=== PATIENT | female | born 1985 | race Caucasian/White ===

== ENCOUNTER → 2024-07-03 | Outpatient (CLI) | payer OTHER, SELFPAY ==
--- NOTE | 2024-07-03 12:49 | ECHOD_ITS ---
Reason For Study Reason For Study: POTS Procedure This was a 2D Doppler, Color Flow transthoracic echocardiogram. Exam performed in department. Left Ventricle Normal LV size. The estimated ejection fraction is 55 %. No evidence for diastolic dysfunction. No regional wall motion abnormalities noted. Right Ventricle Normal RV size. Normal systolic function. Atria The left and right atria are normal. No doppler evidence for ASD. Mitral Valve There is no mitral valve stenosis. Trivial mitral valve insufficiency. Tricuspid Valve There is no tricuspid stenosis. Trivial tricuspid valve insufficiency. Unable to estimate RV systolic pressure due to insufficient tricuspid regurgitant envelope. Aortic Valve The aortic valve is not well visualized. There is no aortic stenosis. No aortic valve insufficiency. Pulmonic Valve There is no pulmonic valvular stenosis. No pulmonic valve insufficiency. Great Vessels Normal sized aortic root. Pericardium/Pleural No pericardial effusion. MMode/2D Measurements & Calculations LVIDd: 4.0 cm IVSd: 0.78 cm Ao root diam: 2.5 cm LVIDs: 3.4 cm LVPWd: 0.91 cm RVDd: 2.6 cm FS: 13.0 % LAV(MOD-bp): 26.5 ml LVAd ap4: 25.0 cm2 SV(MOD-sp4): 42.0 ml LAV(MOD-bp) Indexed: 17.7 ml/m2 LVLd ap4: 7.2 cm SI(MOD-sp4): 28.2 ml/m2 LAV(MOD-sp2): 26.1 ml EDV(MOD-sp4): 72.3 ml LAV(MOD-sp4): 23.0 ml EDV(sp4-el): 73.4 ml LVAs ap4: 14.7 cm2 LVLs ap4: 6.3 cm ESV(MOD-sp4): 30.3 ml ESV(sp4-el): 29.3 ml EF(MOD-sp4): 58.1 % EF(sp4-el): 60.0 % SV(sp4-el): 44.1 ml LA A4 area: 12.3 cm2 LA dimension(2D): 2.2 cm RA A4 area: 7.7 cm2 Time Measurements MV dec time: 0.20 sec Doppler Measurements & Calculations MV E max west: 112.4 cm/sec Lat Peak E' West: 18.4 cm/sec Med Peak E' West: 9.9 cm/sec MV A max west: 43.7 cm/sec E/E' lat: 6.1 E/E' med: 11.4 MV E/A: 2.6 MV V2 max: 123.2 cm/sec Ao V2 max: 125.2 cm/sec MV max P.1 mmHg MV dec slope: 574.1 cm/sec2 Ao max P.3 mmHg MV V2 mean: 62.3 cm/sec Ao V2 mean: 82.3 cm/sec MV mean P.9 mmHg Ao mean P.2 mmHg MV V2 VTI: 37.5 cm Ao V2 VTI: 25.7 cm AV (velocity ratio): 1.0 LV V1 max: 118.4 cm/sec PA V2 max: 82.1 cm/sec LV V1 max P.6 mmHg PA V2 mean: 62.0 cm/sec LV V1 mean P.2 mmHg LV V1 mean: 86.1 cm/sec LV V1 VTI: 26.2 cm ECHO/Echo Complete Interpretation Summary The estimated ejection fraction is 55 %. No evidence for diastolic dysfunction. Trivial mitral valve insufficiency. Ordering Physician: Zofia Miranda Referring Physician: Zofia Miranda Performed By: Heide Sagastume RCS
== END | disposition home or self-care (01) ==
PROVIDERS: PCP Physician Assistant; Referring Provider Physician Assistant; Visit Provider Physician Assistant
DX: G90.A Postural orthostatic tachycardia syndrome [POTS] (principal)
CPT/HCPCS: 93306

== ENCOUNTER → 2025-04-13 | Outpatient (CLI) | payer SELFPAY ==
[2025-04-09 11:13] LABS: Hematocrit 44.5 % (37-47); Hemoglobin 14.8 g/dL (12.0-15.0); Mean Corp Hgb Conc 33.3 g/dL (32-36); Mean Corpuscular Volume 84.0 fL (81-99); Mean Platelet Vol. 9.2 fl (6.2-12.0); Platelet Count 253 K/mm3 (150-450); RBC Distribution Width CV 12.4 % (11.6-14.6); RBC Distribution Width SD 38.1 fl (35.1-43.9); Red Blood Count 5.30 M/mm3 (4.2-5.4); White Blood Count 4.2 K/mm3 (4.4-11.0)
[2025-04-09 11:25] LABS: Internal QC Validated? YES +Cl - CLEAR BKGD; Pregnancy, Serum, hCG Quali. NEGATIVE Negative
[2025-04-09 12:08] LABS: Anion Gap 12 (5-15); BUN 13 mg/dL (4-19); BUN/Creat Ratio 19.9 RATIO (10-20); Calcium,Total 9.3 mg/dL (7.6-11.0); Carbon Dioxide 25.1 mmol/L (21.0-32.0); Chloride 104 mmol/L (98-108); Glucose 97 mg/dL (70-99); Potassium 4.0 mmol/L (3.3-5.1)
--- OUTSIDE RECORDS SUMMARY | 2025-04-13 11:27 | XMS RPT_ITS | CCD ---
Author Organization [facility] Care Team Providers Care Android Programmer Name Role Phone ZOFIA JAMES Primary Care Physician [phone] Vlad Erazo Attending Unavailable DO Vlad Erazo Attending Unavailable Zofia Larkin Primary Care Provider [phone] Zofia Larkin Attending Provider Zofia Larkin Referring Provider [phone] Helen SOLORIO, Dr. Flores Attending Provider Zofia James Primary Care Unavailable Zofia James Referring Unavailable Boaz Rizvi Attending Unavailable Zofia James Primary Care Unavailable Mark Cervantes Attending Unavailabl e Zofia James Primary Care Unavailable Zofia James Attending Unavailable Zofia James Referring Unavailable Zofia Larkin Primary Care Physician Zofia Larkin Referring Provider Dmitri SOLORIO, Dr. Sandra Attending Physician [phone] Allergies Allergy Classification Reported Allergen(s) Allergy Type Date of Onset Reaction(s) Facility (3 sources) Amoxicillin; Translations: [amoxicillin] Drug Allergy 5 [facility] (2 sources) Amoxicillin / Clavulanate; Translations: [amoxicillin-clav ulanate] Drug Allergy [facility] (2 sources) Azithromycin; Translations: [azithromycin] Drug Allergy [facility] (3 sources) Cephalexin; Translations: [cephalexin] Drug Allergy 5 [facility] (3 sources) Ciprofloxacin; Translations: [ciprofloxacin] Drug Allergy 5 [facility] (2 sources) Penicillin; Translations: [penicillin] Drug Allergy [facility] (2 sources) Shellfish; Translations: [shellfish] Drug allergy Anaphylactic reaction [facility] (2 sources) Sulfamethoxazole; Translations: [sulfamethoxazole ] Drug Allergy [facility] (1 source) Amoxicillin Drug Allergy 5 [facility] (1 source) Cephalexin Drug Allergy 5 [facility] (1 source) Ciprofloxacin Drug Allergy 5 [facility] (1 source) Clavulanate Drug Allergy 5 [facility] (1 source) Erythromycin Drug Allergy 5 [facility] (1 source) Penicillins Drug allergy (disorder) 5 [facility] (2 sources) Shellfish Drug allergy (disorder) 5 Anaphylaxis [facility] (1 source) Sulfonamides (Antibiotic) Drug allergy (disorder) 5 [facility] (1 source) Clavulanate Drug Allergy 5 [facility] (1 source) Erythromycin Drug Allergy 5 [facility] (1 source) Penicillins Allergy to substance 5 [facility] (1 source) Sulfonamides (Antibiotic) Allergy to substance 5 [facility] Medications Current Medications Medication Drug Class(es) Dates Sig (Normalized) Sig (Original) Calcium Lactate 100 mg calcium tablet (1 source) Start: 02-04-2025 take 1 tablet by mouth once daily Calcium Lactate 100 mg calcium tablet Active 100 mg PO daily February 04, 2025 12:00am Complies with drug therapy [id number] 0.3 ml EPINEPHrine 1 mg/ml auto-injector (1 source) alpha-Adrenergic Agonist, beta-Adrenergic Agonist, Catecholamine Start: 02-04-2025 Epinephrine 0.3 mg/0.3 mL auto-injector Active 0.3 mg IM every 5 to 15 minutes as needed February 04, 2025 12:00am do not exceed 3 doses per episode Complies with drug therapy ergocalciferol 0.05 mg oral capsule (1 source) Provitamin D2 Compound Start: 02-04-2025 Ergocalciferol (Vitamin D2) 50 mcg (2,000 unit) capsule Active 50 ug PO daily February 04, 2025 12:00am Complies with drug therapy Lactobacillus Combination No.9 (Adult 50 Plus Probiotic) 4 billion cell capsule (1 source) Start: 02-17-2025 take 4 capsules by mouth once daily Lactobacillus Combination No.9 (Adult 50 Plus Probiotic) 4 billion cell capsule Active PO daily February 17, 2025 12:00am Complies with drug therapy magnesium oxide 400 mg oral tablet (1 source) Start: 02-04-2025 take 1 tablet by mouth once daily Magnesium Oxide 400 mg magnesium tablet Active 400 mg PO daily February 04, 2025 12:00am Complies with drug therapy mecobalamin 1 mg oral lozenge (1 source) Start: 02-04-2025 take 1000 ug by mouth once daily Mecobalamin (Vitamin B12) 1,000 mcg lozenge Active 1000 ug PO daily February 04, 2025 12:00am allow to dissolve in mouth OR may chew lightly before swallowing Complies with drug therapy Milk Nsadnjn-Qlm-Lzhqps-T urmer (Liver Complex) 250-250 mg tablet (1 source) Start: 02-04-2025 Milk Unvrcbw-Hvw-Mvnzys- Turmer (Liver Complex) 250-250 mg tablet Active 1 {tbl} PO DAILY February 04, 2025 12:00am Complies with drug therapy naproxen 500 mg oral tablet (1 source) Nonsteroidal Anti-inflammatory Drug Start: 06-07-2024 take 1 tablet by mouth twice daily as needed for pain Naprosyn 500 mg Tab 500 mg = 1 tab(s), Oral, BID, PRN for pain, # 20 tab(s), Refills(s) 0 Start Date: 06/07/24 Status: Ordered propranolol hydrochloride 20 mg oral tablet (1 source) beta-Adrenergic [place] Start: 02-04-2025 take 1 tablet by mouth twice daily Propranolol 20 mg tablet Active 20 mg PO TWICE A DAY February 04, 2025 12:00am Complies with drug therapy vitamin k 0.1 mg oral tablet (1 source) Start: 02-04-2025 Phytonadione (Vitamin K1) 100 mcg tablet Active 100 ug PO daily February 04, 2025 12:00am Complies with drug therapy Zofran ODT 4 mg Tab-Dis (1 source) Start: 06-07-2024 take 1 tablet by mouth every six hours Zofran ODT 4 mg Tab-Dis 4 mg = 1 tab(s), Oral, q6hr, # 12 tab(s), Refills(s) 0 Start Date: 06/07/24 Status: Ordered Completed/Discontinued Medications Medication Drug Class(es) Dates Sig (Normalized) Sig (Original) amitriptyline hydrochloride 25 mg oral tablet (1 source) Tricyclic Antidepressant Start: 02-04-2025 End: 02-17-2025 take 1 tablet by mouth once daily Amitriptyline 25 mg tablet Discontinued 25 mg PO daily February 04, 2025 12:00am February 17, 2025 11:09am Problems Active Problems Problem Classification Problem Date Documented Da te Episodic/Chronic Asthma (1 source) Asthma; Translations: [Unspecified asthma, uncomplicated] 02-04-2025 Chronic Cardiac dysrhythmias (2 sources) Postural orthostatic tachycardia syndrome ; Translations: [Postural orthostatic tachycardia syndrome] 02-04-2025 Chronic Cardiac dysrhythmias (4 sources) Palpitations; Translations: [Tachycardia, unspecified] Onset: 02-17-2025 02-04-2025 Episodic Malaise and fatigue (2 sources) Other fatigue; Translations: [Fatigue] Onset: 02-17-2025 02-04-2025 Episodic Nonspecific chest pain (1 source) Chest pain; Translations: [Chest pain, unspecified] Onset: 06-07-2024 Episodic Other gastrointestinal disorders (1 source) Irritable bowel syndrome; Translations: [Irritable bowel syndrome without diarrhea] 02-04-2025 Chronic Other infections; including parasitic (1 source) Lyme disease; Translations: [Lyme disease, unspecified] 02-04-2025 Episodic Syncope (3 sources) Syncope and collapse; Translations: [Syncope] Onset: 02-17-2025 02-04-2025 Episodic Viral infection (1 source) Chris-Barragan virus disease; Translations: [Infectious mononucleosis, unspecified without complication] 02-04-2025 Episodic Past or Other Problems Problem Classification Problem Date Documented Da te Episodic/Chronic Other circulatory disease (1 source) Postural orthostatic tachycardia syndrome ; Translations: [Postural orthostatic tachycardia syndrome [POTS]] Onset: 07-16-2024 Episodic Results Test Name Value Interpretation Reference Range Facility Cardiology Visit Reporton Cardiology Visit Report [facility] [address] [place] [address] OFFICE VISIT Date of Service: 02/17/25 MR#: [id number] Acct: [id number] Name: ELLA VEGA Rep #: [id number] : 1985 Provider: Dr. Boaz Rizvi MD Age/Sex: 39/F [place] [facility] [place]: Signed HPI HPI History of Present Illness Details: The patient is a 39-year-old female with a history of vasovagal syncope, presenting for evaluation of ongoing symptoms. The patient was diagnosed with vasovagal syncope in her early 20s following a positive tilt table test. Recently, her primary care provider suggested a diagnosis of POTS and initiated propranolol, which has helped reduce episodes of tachycardia. She is seeking further evaluation to determine the accuracy of her diagnosis and the appropriateness of her current treatment regimen. She did have an echocardiogram in June which demonstrated preserved left ventricular systolic function with no wall motion abnormalities noted and no mitral valve prolapse. She reports persistent symptoms of palpitations, dizziness, and severe fatigue. Dizziness is particularly pronounced with postural changes, such as standing up after gardening, often accompanied by visual disturbances like seeing black spots and a sensation of things swimming. She has not experienced any recent syncopal episodes, as she can usually prevent fainting by quickly sitting down or holding onto something. A few months ago, she visited the ED due to significant chest pain but was discharged without a clear diagnosis. She continues to experience occasional chest discomfort. Her physical exam is unremarkable and her electrocardiogram demonstrates sinus rhythm with a rate of 62 bpm. She carries a water bottle with added salt to maintain hydration and increase sodium intake. During episodes of severe symptoms, she consumes salty snacks and caffeinated beverages, which she finds helpful. She has a history of IBS and has previously tried elimination diets. Recently, she has been reducing gluten intake and increasing protein consumption, which she believes may slightly alleviate her symptoms. She is currently not employed outside the home. She is taking propranolol 20 mg BID and various supplements, including milk thistle. Intake Vital Signs 02/17/25 11:13 Height 5 ft 1 in Weight: 113 lb BMI 21.3 BP 100/63 Blood Pressure Location Lt brachial Position Sitting Respiration 16 Pulse 68 Pulse Source Monitor Intake Visit Reasons: POTS (BIRD) Manager Reading Required: No Accompanied by: Significant Other Is patient in pain?: No Allergies amoxicillin Allergy (Severe, Verified 02/17/25 11:08) Hives cephalexin (From Keflex) Allergy (Severe, Verified 02/17/25 11:08) Hives ciprofloxacin (From Cipro) Allergy (Severe, Verified 02/17/25 11:08) Hives clavulanic acid (From Augmentin) Allergy (Severe, Verified 02/17/25 11:08) Hives erythromycin base Allergy (Severe, Verified 02/17/25 11:08) Hives Penicillins Allergy (Severe, Verified 02/17/25 11:08) Hives shellfish derived Allergy (Severe, Verified 02/17/25 11:08) Anaphylaxis Sulfa (Sulfonamide Antibiotics) Allergy (Severe, Verified 02/17/25 11:08) Hives Medications ???Medication ???Instructions ???Recorded ???Confirmed ???Type calcium lactate 100 mg PO QDAY 02/04/25 02/17/25 H istory epinephrine 0.3 mg/0.3 mL 0.3 mg IM Q5-15M PRN 02/04/2502/03 History injection, auto-injector ergocalciferol (vitamin D2) 50 mcg 50 mcg PO QDAY 02/04/25 02/17/25 History (2,000 unit) capsule magnesium oxide 400 mg PO QDAY 02/04/25 02/17/25 H istory mecobalamin (vitamin B12) 1,000 1,000 mcg PO QDAY 02/04/25 5 History mcg lozenges milk thistle seed 1 tab PO DAILY 02/04/25 02/17/25 H istory bv-dooscivwtk-oycmyxq on-turmeri 250 mg-250 mg tablet (Liver Complex) phytonadione (vitamin K1) 100 mcg 100 mcg PO QDAY 02/04/25 02/17/25 History tablet propranolol 20 mg tablet 20 mg PO BID 02/04/25 02/17/25 His tory lactobacillus combination no.9 4 PO QDAY 02/17/25 02/17/25 History billion cell capsule (Adult 50 Plus Probiotic) Ejection fraction %: 55 PFSH Medical History Asthma Hx of ectopic Fatigue Tachycardia Palpitations Syncope Chris Barragan infection IBS (irritable bowel syndrome) Lyme disease POTS (postural orthostatic tachycardia syndrome) Surgical History H/O dilation and curettage Family History Father COPD (chronic obstructive pulmonary disease) Alcohol abuse Drug abuse Social History Smo (more content not included)... Normal [facility] Echocardiogram study reportO rdered By: Mark Cervantes on 07-04-2024 Study report [facility] [address] [place] [address]. [place] [address] Echo Complete 07/03/24 1255 MR#: [id number] Acct: [id number] Name: ELLA VEGA Rep #:[id number] : 1985 39 From: Mark foreman MD Attending Dr: SAMIR Blanton Stat us: REG CLI Ordering Dr: Zofia James Date: Location: [facility] Sex: F C Admitted: Reason For Study Reason For Study: POTS Procedure This was a 2D Doppler, Color Flow transthoracic echocardiogram. Exam performed in department. Left Ventricle Normal LV size. The estimated ejection fraction is 55 %. No evidence for diastolic dysfunction. No regional wall motion abnormalities noted. Right Ventricle Normal RV size. Normal systolic function. Atria The left and right atria are normal. No doppler evidence for ASD. Mitral Valve There is no mitral valve stenosis. Trivial mitral valve insufficiency. Tricuspid Valve There is no tricuspid stenosis. Trivial tricuspid valve insufficiency. Unable toestimate RV systolic pressure due to insufficient tricuspid regurgitant envelope. Aortic Valve The aortic valve is not well visualized. There is no aortic stenosis. No aortic valve insufficiency. Pulmonic Valve There is no pulmonic valvular stenosis. No pulmonic valve insufficiency. Great Vessels Normal sized aortic root. Pericardium/Pleural No pericardial effusion. MMode/2D Measurements & Calculations LVIDd: 4.0 cm IVSd: 0.78 cm Ao root diam: 2.5 cm LVIDs: 3.4 cm LVPWd: 0.91 cm RVDd: 2.6 cm FS: 13.0 % LAV(MOD-bp): 26.5 ml LVAd ap4: 25.0 cm2 SV(MOD-sp4): 42.0 ml LAV(MOD-bp) Indexed: 17.7 ml/m2 LVLd ap4: 7.2 cm SI(MOD-sp4): 28.2 ml/m2 LAV(MOD-sp2): 26.1 ml EDV(MOD-sp4): 72.3 ml LAV(MOD-sp4): 23.0 ml EDV(sp4-el): 73.4 ml LVAs ap4: 14.7 cm2 LVLs ap4: 6.3 cm ESV(MOD-sp4): 30.3 ml ESV(sp4-el): 29.3 ml EF(MOD-sp4): 58.1 % EF(sp4-el): 60.0 % SV(sp4-el): 44.1 ml LA A4 area: 12.3 cm2 LA dimension(2D): 2.2 cm RA A4 area: 7.7 cm2 Time Measurements MV dec time: 0.20 sec Doppler Measurements & Calculations MV E max miriam: 112.4 cm/sec Lat Peak E' Miriam: 18.4 cm/sec Med Peak E' Miriam: 9.9 cm/sec MV A max miriam: 43.7 cm/sec E/E' lat: 6.1 E/E' med: 11.4 MV E/A: 2.6 MV V2 max: 123.2 cm/sec Ao V2 max: 125.2 cm/sec MV max P.1 mmHg MV dec slope: 574.1 cm/sec2 Ao max P.3 mmHg MV V2 mean: 62.3 cm/sec Ao V2 mean: 82.3 cm/sec MV mean P.9 mmHg Ao mean P.2 mmHg MV V2 VTI: 37.5 cm Ao V2 VTI: 25.7 cm AV (velocity ratio): 1.0 LV V1 max: 118.4 cm/sec PA V2 max: 82.1 cm/sec LV V1 max P.6 mmHg PA V2 mean: 62.0 cm/sec LV V1 mean P.2 mmHg LV V1 mean: 86.1 cm/sec LV V1 VTI: 26.2 cm ECHO/Echo Complete Interpretation Summary The estimated ejection fraction is 55 %. No evidence for diastolic dysfunction. Trivial mitral valve insufficiency. Ordering Physician: Zofia James Referring Physician: Zofia James Performed By: Heide Sagastume RCS 07/04/24 1024 Date _ Mark Cervantes MD CC: SAMIR Blanton ~ Date Dictated: 07/03/24 1255 Date Transcribed: 07/04/24 1024 Outreach Rep: Signed [facility] Work Phone: Echo Completeon 07-03-2024 Echo Complete [facility] [address] [address] Echo Complete 07/03/24 1255 MR#: [id number] Acct: [id number] Name: ELLA VEGA Rep #: [id number] : 1985 39 From: Mark Cervantes MD Attending Dr: SAMIR Blanton Status: REG CLI Ordering Dr: Zofia James Date: 07/03/24 Location: [facility] Sex: F C Admitted: Reason For Study Reason For Study: POTS Procedure This was a 2D Doppler, Color Flow transthoracic echocardiogram. Exam performed in department. Left Ventricle Normal LV size. The estimated ejection fraction is 55 %. No evidence for diastolic dysfunction. No regional wall motion abnormalities noted. Right Ventricle Normal RV size. Normal systolic function. Atria The left and right atria are normal. No doppler evidence for ASD. Mitral Valve There is no mitral valve stenosis. Trivial mitral valve insufficiency. Tricuspid Valve There is no tricuspid stenosis. Trivial tricuspid valve insufficiency. Unable to estimate RV systolic pressure due to insufficient tricuspid regurgitant envelope. Aortic Valve The aortic valve is not well visualized. There is no aortic stenosis. No aortic valve insufficiency. Pulmonic Valve There is no pulmonic valvular stenosis. No pulmonic valve insufficiency. Great Vessels Normal sized aortic root. Pericardium/Pleural No pericardial effusion. MMode/2D Measurements Calculations LVIDd: 4.0 cm IVSd: 0.78 cm Ao root diam: 2.5 cm LVIDs: 3.4 cm LVPWd: 0.91 cm RVDd: 2.6 cm FS: 13.0 % LAV(MOD-bp): 26.5 ml LVAd ap4: 25.0 cm2 SV(MOD-sp4): 42.0 ml LAV(MOD-bp) Indexed: 17.7 ml/m2 LVLd ap4: 7.2 cm SI(MOD-sp4): 28.2 ml/m2 LAV(MOD-sp2): 26.1 ml EDV(MOD-sp4): 72.3 ml LAV(MOD-sp4): 23.0 ml EDV(sp4-el): 73.4 ml LVAs ap4: 14.7 cm2 LVLs ap4: 6.3 cm ESV(MOD-sp4): 30.3 ml ESV(sp4-el): 29.3 ml EF(MOD-sp4): 58.1 % EF(sp4-el): 60.0 % SV(sp4-el): 44.1 ml LA A4 area: 12.3 cm2 LA dimension(2D): 2.2 cm RA A4 area: 7.7 cm2 Time Measurements MV dec time: 0.20 sec Doppler Measurements Calculations MV E max miriam: 112.4 cm/sec Lat Peak E' Miriam: 18.4 cm/sec Med Peak E' Miriam: 9.9 cm/sec MV A max miriam: 43.7 cm/sec E/E' lat: 6.1 E/E' med: 11.4 MV E/A: 2.6 MV V2 max: 123.2 cm/sec Ao V2 max: 125.2 cm/sec MV max P.1 mmHg MV dec slope: 574.1 cm/sec2 Ao max P.3 mmHg MV V2 mean: 62.3 cm/sec Ao V2 mean: 82.3 cm/sec MV mean P.9 mmHg Ao mean P.2 mmHg MV V2 VTI: 37.5 cm Ao V2 VTI: 25.7 cm AV (velocity ratio): 1.0 LV V1 max: 118.4 cm/sec PA V2 max: 82.1 cm/sec LV V1 max P.6 mmHg PA V2 mean: 62.0 cm/sec LV V1 mean P.2 mmHg LV V1 mean: 86.1 cm/sec LV V1 VTI: 26.2 cm ECHO/Echo Complete Interpretation Summary The estimated ejection fraction is 55 %. No evidence for diastolic dysfunction. Trivial mitral valve insufficiency. Ordering Physician: Zofia James Referring Physician: Zofia James Performed By: Heide Sagastume RCS 07/04/24 1024 Date Mark Cervantes MD CC: SAMIR Blanton Date Dictated: 07/03/24 1255 Date Transcribed: 07/04/24 1024 Outreach Rep: Signed [facility] ED Clinical Summaryon 2024 ED Clinical Summary ED Clinical Summary [place] [address] ED Clinical Summary Person Information Name: ELLA VEGA[place] Age: 39 Years : 1985 Sex: Female Language: Luxembourgish PCP: ZOFIA JAMES PA-C Marital Status: Visit Id: Visit Reason: Nausea; Back pain; Chest pain; CP Speciality: Acuity: 2 Enc Type: Emergency Med Service: Emergency Arrival: 06/06/2024 22:12:27 Discharge: 06/07/2024 01:00:12 LOS: 000 02:48 Checkin: 06/06/2024 22:12:27 Checkout: 06/07/2024 01:00:12 Dispo Type: Home (Routine DC) EVENTS: Event Name Event Status Request Date/Time Start Date/Time Complete Date/Time Arrive Complete 06/06/2024 22:12:27 06/06/2024 22:12:27 06/06/2024 22:12:27 Document Home Meds Request 06/06/2024 22:12:27 Triage Complete 06/06/2024 22:12:27 06/06/2024 22:21:30 06/06/2024 22:21:30 Bed Assign Complete 06/06/2024 22:12:27 06/06/2024 22:12:27 06/06/2024 22:12:27 Dr Exam Complete 06/06/2024 22:12:27 06/06/2024 22:18:15 06/06/2024 22:18:15 RN Exam Complete 06/06/2024 22:12:27 06/06/2024 22:23:25 06/06/2024 22:23:25 EKG Complete 06/06/2024 22:14:59 06/06/2024 22:16:18 Registration Complete 06/06/2024 22:18:15 06/06/2024 22:40:01 06/06/2024 22:40:01 Meds Admin Complete 06/06/2024 22:26:31 06/06/2024 22:32:58 Pending Labs Complete 06/06/2024 22:26:31 06/07/2024 00:34:26 Lab Complete 06/06/2024 22:26:31 06/06/2024 23:14:19 Patient Care Request 06/06/2024 22:26:31 RT Request 06/06/2024 22:26:31 X-Ray Complete 06/06/2024 22:26:31 06/06/2024 23:20:55 06/06/2024 23:29:18 Reg Complete Request 06/06/2024 22:40:01 Reg Bed Request Complete 06/06/2024 22:40:01 06/06/2024 22:40:01 06/06/2024 22:40:01 Pending Labs Complete 06/06/2024 22:52:24 06/06/2024 22:52:24 06/06/2024 23:14:19 Lab Complete 06/06/2024 22:52:24 06/06/2024 22:52:24 06/06/2024 23:14:19 Meds Admin Complete 06/06/2024 23:01:54 06/06/2024 23:11:45 Wet Read Request 06/06/2024 23:29:18 Discharge Complete 06/07/2024 00:45:26 06/07/2024 01:00:19 06/07/2024 01:00:19 Transfer Complete 06/07/2024 01:00:19 06/07/2024 01:00:19 06/07/2024 01:00:19 ADDRESS: [address] [place] [address] [phone] PHYS DOC NOTES: MEDICAL INFORMATION: Prescriptions Given: New Medications Printed Prescriptions naproxen (Naprosyn 500 mg Tab) 1 Tablets By Mouth 2 times a day as needed for pain. Refills: 0. ondansetron (Zofran ODT 4 mg Tab-Dis) 1 Tablets By Mouth every 6 hours. Refills: 0. PATIENT EDUCATION INFORMATION: Instructions: Nonspecific Chest Pain, Adult, Kevv-bq-Wagx Follow up: With: Address: When: ZOFIA JAMES [address] [place] [address] [phone] Business (1) In 3 days 06/10/2024 Comments: You can take the naproxen, Zofran as prescribed as needed for pain and nausea. Please follow-up with your primary care doctor for further evaluation and management. Please return to the ED for any new or worsening symptoms. DIAGNOSIS: Chest pain Normal [facility] ED Note-Physicianon 06-07-19 25 ED Note-Physician ED Note-Physician Basic Information Time Seen: Vlad Erazo DO 06/06/2024 22:18 Chief Complaint pt arrives via ems for c/o chest pain x 4 days. states left side of the chest with radiation to the back. also c/o nausea. pt states dx with POTS in january. ems gave nitro and 324 ASA History of Present Illness Patient is a 39-year-old female with past medical history of POTS presenting to the ED for evaluation of chest pain. Patient states she has had intermittent chest pain for the last 3 to 4 days, predominantly on the left side with radiation to the left scapula. Patient denies any fevers or chills, does note recent illness earlier in the month cough and congestion however states she has been feeling back to normal. Patient does note a heaviness to the left chest, has improved since arrival. Patient denies any leg pain, leg swelling. Review of Systems A 10 point review of systems is negative except as noted above. Medical and Surgical History: Reviewed and noted Social history: Lives at home Tobacco: Denies Physical Exam Vitals & Measurements T: 36.7 ???C(Oral) HR: 70(Monitored) RR: 21 BP: 103/65 SpO2: 99% HT: 155 cm WT: 54.7 kg BMI: 22.77 General: Well developed, non toxic appearing, no acute distress HEENT: Head atraumatic, Mucosa moist, hearing grossly normal Neck: No JVD, tracheal deviation Cardiac: Regular rate, rhythm, no murmurs, or gallops, 2+ radial pulses Respiratory: Lungs clear to auscultation B/L, normal respiratory effort Abdomen: Soft non tender, no rebound or guarding, no peritoneal signs Extremities: No edema noted in the LE B/L, no tenderness to palpation Neurologic: Alert and oriented, speech clear Skin: No rashes or lesions Psych: Appropriate mood and behavior Medical Decision Making MEDICAL DECISION MAKING Number and Complexity of Problems Differential Diagnosis: [] [facility] Data External documents reviewed: [] My EKG interpretation: [] My CT interpretation: [] My X-ray interpretation: [] My Ultrasound interpretation: [] Decision rules/scores evaluated: Heart Score for Major Cardiac Event History: Example factors for history - pattern of chest pain, onset, duration, relation with exercise, stress or cold, localization, concominant symptoms. reaction to sublingual nitrates, [] Highly suspicious +2 [X] Moderately suspicious +1 [] Slightly suspicious 0 EKG: [] Significant ST-Depression +2 [] Non specific repolarization disturbance +1 [X] Normal 0 Age: [] >= 65 +2 [] 45-65 + 1 [X] <45 0 Risk Factors: (HLD, HTN, DM, Cigarette Smoking, Pos Family Hx, Obesity) [] >3 risk factors or hx of atheroslerotic disease + 2 [] 1-2 risk factors + 1 [X] No risk factors known 0 Troponin: [] >= 3X normal + 2 [] 1-3X normal + 1 [X] <= Normal 0 [X] 0-3 Points 0.9 - 1.7% risk of major adverse cardiac event in 6 weeks [] 4-6 Points 12-16.6% risk of major adverse cardiac event in 6 weeks [] 7-10 Points 50-65% risk of major adverse cardiac event in 6 weeks [X] 0-3 Points with 2 sets of negative cardiac markers <1% risk of major adverse cardiac event in 30 days. Discussed with: [] Treatment and Disposition ED Course: Patient is a 39-year-old female presenting to the ED for evaluation of chest pain. Patient is nontoxic and on arrival, no acute distress. EKG without any acute abnormalities. Due to her complaints cardiac workup is obtained patient is given Toradol in the ED for pain. Patient's laboratory evaluations unremarkable, troponins are negative x 2, chest x-ray without focal infiltrates. Have low concern for ACS this patient symptoms ongoing for the last 4 days I would anticipate troponin elevation if there were ongoing ACS. I believe this is likely muscular versus pleurisy due to recent illness. Discussed findings with patient she is started on naproxen, Zofran. She is follow-up with her primary care doctor for further evaluation management. She is to return to the ED for any new or worsening symptoms. Shared decision making: [] Code status: [] Assessment/Plan Chest pain (R07.9: Chest pain, unspecified) Orders: ketorolac, 15 mg = 1 mL, Injection, IV Push, Once, Stop date 06/06/24 23:01:00 EST, STAT, Start date 06/06/24 23:01:00 EST, 06/06/24 23:01:00 EST naproxen, 500 mg = 1 tab(s), Oral, BID, PRN for pain, # 20 tab(s), Refills(s) 0 ondansetron, 4 mg = 1 tab(s), Oral, q6hr, # 12 tab(s), Refills(s) 0 Sodium Chloride 0.9% intravenous solution, 500 mL, Soln-IV, IV, Once, Stop date 06/06/24 22:26:00 EST, STAT, Start date 06/06/24 22:26:00 EST, 500 mL/hr, Infuse over 1, hour(s) Basic Metabolic Panel CBC w/ Auto Diff ECG 12 Lead Adult ED Cardiac Monitoring eGFR Oxygen Saturation Oxygen Therapy PT & PTT Saline Lock Insert Troponin (more content not included)... Normal [facility] Comment on above: Result Comment: Elec tronically Signed By: Vlad Erazo DO\.nura\Date and Time Signed: 06/07/24 02:35 EST ED Patient Summaryon 025 ED Patient Summary ED Patient Summary [address] [address] Patient Discharge Instructions Person Information Name: ELLA VEGA Age: 39 Years Arrival Date: 06/06/2024 22:12:27 Discharge Diagnosis: Chest pain Primary Care Physician: ZOFIA JAMES PA-C Provider Information Primary Provider: Vlad Erazo DO Advanced Brick Tender:None The exam and treatment you received in the Emergency Department were for an urgent problem and are not intended as complete care. It is important that you follow up with a doctor, nurse practitioner, or physician???s assistant drafter for ongoing care. If your symptoms become worse or you do not improve as expected and you are unable to reach your usual health care provider, you should return to the Emergency Department. We are available 24 hours a day. ELLA VEGA CHRIS has been given the following list of patient education materials, prescriptions and follow-up instructions: Follow-up Instructions: With: Address: When: ZOFIA JAMES [address] [place] [address] [id number] Business (1) In 3 days 06/10/2024 Comments: You can take the naproxen, Zofran as prescribed as needed for pain and nausea. Please follow-up with your primary care doctor for further evaluation and management. Please return to the ED for any new or worsening symptoms. In the event that this physician does not participate in your insurance network, please consult with your insurance company to find a nearby participating provider. Patient Education Materials: Nonspecific Chest Pain, Adult, Gbud-wq-Gzwx A MESSAGE TO ALL PATIENTS REGARDING OPIOIDS PRESCRIPTION OPIOIDS: WHAT YOU NEED TO KNOW Prescription opioids can be used to help relieve niqifgde-lj-mnmfrp pain and are often prescribed following a surgery or injury, or for certain health conditions. These medications can be an important part of the treatment but also come with serious risks. It is important to work with your healthcare provider to make sure you are getting the safest, most effective care. WHAT ARE THE RISKS AND SIDE EFFECTS OF OPIOID USE? Prescription opioids carry serious risks of addiction and overdose, especially with prolonged use. An opioid overdose, often marked by slowed breathing, can cause sudden . The use of prescription opioids can have a number of side effects as well, even when taken as directed: ??? Tolerance???meaning you might need to take more of the medication for the same pain relief ??? Physical dependence???meaning you have symptoms of withdrawal when a medication is stopped ??? Increased sensitivity to pain ??? Constipation ??? Nausea, vomiting, and dry mouth ??? Sleepiness and dizziness ??? Confusion ??? Depression ??? Low levels of testosterone that can result in lower sex drive, energy, and strength ??? Itching and sweating RISKS ARE GREATER WITH: ??? History of drug misuse, substance use disorder, or overdose ??? Mental health conditions (such as depression or anxiety) ??? Sleep apnea ??? Older age (65 years and older) ??? Avoid alcohol while taking prescription opioids. Also, unless specifically advised by your health care provider, medications to avoid include: ??? Benzodiazepines (such as Xanax or Valium) ??? Muscle relaxants (such as Soma or Flexeril) ??? Hypnotics (such as Ambien or Lunesta) ??? Other prescription opioids KNOW YOUR OPTIONS Talk to your health care provider about ways to manage your pain that don???t involve prescription opioids. Some of these options may actually work better and have fewer risks and side effects. Options may include: ??? Pain relievers such as acetaminophen, ibuprofen, and naproxen ??? Some medication that are also used for depression or seizures ??? Physical therapy and exercise ??? Cognitive behavioral therapy, a psychological, goal-directed approach, in which patients learn how to modify physical, behavioral, and emotional triggers of pain and stress. IF YOU ARE PRESCRIBED OPIOIDS FOR PAIN: ??? Never take opioids in greater amounts or more often than prescribed. ??? Follow up with your primary health care provider. o Work together to create a plan on how to manage your pain. o Talk about ways to help manage your pain that don???t involve prescription opioids. o Talk about any and all concerns and side effects. ??? Help prevent misuse and abuse o Never sell or share prescription opioids. o Never use another person???s prescription opioids. ??? Store prescription opioids in a secure place and out of reach of others (this may include visitors, children, friends, and family). ??? Safely dispose of unused prescription opioids: Find your community drug take-back program or your pharmacy mail-back program, or flush them down the toilet, following guidance from the Food and Drug Administration (w (more content not included)... Normal [facility] Troponin 1 Hr.on 06-07-2024 Troponin HS <2.30 Low 10.10-27.10 [facility] Comment on above: Order Comment: [id number] Result Comment: The 95% CI (Confidence Interval) PPV (Positive Predictive Value) for myocardial infarction in females is 38 pg/mL, in males 51 pg/mL. The results should be used in conjunction with clinical conditions of myocardial infarction. (Access High Sensitivity Troponin I Instructions For Use, Elizabeth Helena, December 2017) Performed By: #### 1 [id number] #### [facility] [address] [place] [address] XR Chest Single Viewon 06-07 XR Chest Single View Exam Date/Time: 06/06/2024 23:29 EST Reason for Exam: Chest pain Report IMPRESSION: No acute findings by portable radiography. EXAMINATION/TECHNIQUE : XR Chest Single View HISTORY: Chest pain. COMPARISON: None RESULT: No consolidation. No pleural effusion. No pneumothorax. Granulomas calcifications. Normal cardiomediastinal silhouette. No acute osseous findings. Ordering Provider: Vlad Erazo FINAL REPORT Dictated: 06/07/2024 12:29 pm Hank Hawkins MD Signed (Electronic Signature): 06/07/2024 12:29 pm Signed by: Hank Hawkins MD Transcribed by: DEANNA Technologist: CHANELL Aguillon [facility] BMPon 06-06-2024 Anion gap [Moles/Vol] 12 mmol/L Normal 6-16 [facility] Comment on above: Performed By: #### 2 [id number] #### [facility] [address] [place] [address] Calcium [Mass/Vol] 9.2 mg/dL Normal 8.9-11.1 [facility] Comment on above: Performed By: #### 2 [id number] #### [facility] [address] [place] [address] Chloride [Moles/Vol] 106 mmol/L Normal 101-111 [facility] Comment on above: Performed By: #### 2 [id number] #### [facility] [address] [place] [address] CO2 [Moles/Vol] 26 mmol/L Normal 21-31 [facility] Comment on above: Performed By: #### 2 [id number] #### [facility] [address] [place] [address] Creatinine [Mass/Vol] 0.7 mg/dL Normal 0.5-1.3 [facility] Comment on above: Performed By: #### 2 [id number] #### [facility] [address] [place] [address] Glucose [Mass/Vol] 122 mg/dL Normal 55-199 [facility] Comment on above: Performed By: #### 2 [id number] #### [facility] [address] [place] [address] Potassium [Moles/Vol] 3.6 mmol/L Normal 3.5-5.3 [facility] Comment on above: Performed By: #### 2 [id number] #### [facility] [address] [place] [address] Sodium [Moles/Vol] 140 mmol/L Normal 135-145 [facility] Comment on above: Performed By: #### 2 [id number] #### [facility] [address] [place] [address] Urea nitrogen [Mass/Vol] 15 mg/dL Normal 5-21 [facility] Comment on above: Performed By: #### 2 [id number] #### [facility] [address] [place] [address] Urea nitrogen/Creatinine [Mass ratio] 21 No Units High 10-20 [facility] Comment on above: Performed By: #### 2 [id number] #### [facility] [address] [place] [address] CBC w/ Auto Diffon 5 Basophils/100 WBC (Bld) 0.5 % Normal 0.0-2.0 [facility] Comment on above: Performed By: #### 2 [id number] #### [facility] [address] [place] [address] Basophils/Leukocytes Auto (Bld) [Pure # fraction] 0.0 E9/L Normal 0.0-0.2 [facility] Comment on above: Performed By: #### 2 [id number] #### [facility] [address] [place] [address] Eosinophils (Bld) [#/Vol] 0.2 E9/L Normal 0.0-0.5 [facility] Comment on above: Performed By: #### 2 [id number] #### [facility] [address] [place] [address] Eosinophils/100 WBC (Bld) 2.9 % Normal 0.0-8.0 [facility] Comment on above: Performed By: #### 2 [id number] #### [facility] [address] [place] [address] Erythrocyte distribution width (RBC) [Ratio] 13.1 % Normal 10.9-14.2 [facility] Comment on above: Performed By: #### 2 [id number] #### [facility] [address] [place] [address] Hematocrit (Bld) [Volume fraction] 36.8 % Normal 34.0-46.0 [facility] Comment on above: Performed By: #### 2 [id number] #### [facility] [address] [place] [address] Hemoglobin (Bld) [Mass/Vol] 12.8 g/dL Normal 12.0-16.0 [facility] Comment on above: Performed By: #### 2 [id number] #### [facility] [address] [place] [address] Lymphocytes (Bld) [#/Vol] 1.5 E9/L Normal 1.0-4.0 [facility] Comment on above: Performed By: #### 2 [id number] #### [facility] [address] [place] [address] Lymphocytes/100 WBC (Bld) 24.5 % Normal 14.0-50.0 [facility] Comment on above: Performed By: #### 2 [id number] #### [facility] [address] [place] [address] MCH (RBC) [Entitic mass] 28.5 pg Normal 27.0-34.0 [facility] Comment on above: Performed By: #### 2 [id number] #### [facility] [address] [place] [address] MCHC (RBC) [Mass/Vol] 34.8 g/dL Normal 31.4-36.0 [facility] Comment on above: Performed By: #### 2 [id number] #### [facility] [address] [place] [address] MCV (RBC) [Entitic vol] 81.8 fL Normal 80.0-100.0 [facility] Comment on above: Performed By: #### 2 [id number] #### [facility] [address] [place] [address] Monocytes (Bld) [#/Vol] 0.5 E9/L Normal 0.2-1.0 [facility] Comment on above: Performed By: #### 2 [id number] #### [facility] [address] [place] [address] Neutrophils (Bld) [#/Vol] 3.8 E9/L Normal 2.0-7.5 [facility] Comment on above: Performed By: #### 2 [id number] #### [facility] [address] [place] [address] Neutrophils/100 WBC (Bld) 64.4 % Normal 36.0-75.0 [facility] Comment on above: Performed By: #### 2 [id number] #### [facility] [address] [place] [address] Platelet 242.0 E9/L Normal 150.0-500.0 [facility] Comment on above: Performed By: #### 2 [id number] #### [facility] [address] [place] [address] Platelet mean volume (Bld) [Entitic vol] 6.9 fL Normal 6.4-10.8 [facility] Comment on above: Performed By: #### 2 [id number] #### [facility] [address] [place] [address] RBC (Bld) [#/Vol] 4.5 E12/L Normal 4.3-5.9 [facility] Comment on above: Performed By: #### 2 [id number] #### [facility] [address] [place] [address] WBC corrected for nucl RBC Auto (Bld) [#/Vol] 5.9 E9/L Normal 4.0-11.0 [facility] Comment on above: Performed By: #### 2 [id number] #### [facility] [address] [place] [address] CHEMISTRYOrdered By: SYSTEM SYSTEM on 06-06-2024 Troponin HS pg/mL Low 10.10 - 27.10 pg/mL [facility] Comment on above: Interpretive Data: T he 95% CI (Confidence Interval) PPV (Positive Predictive Value) for myocardial infarction in females is 38 pg/mL, in males 51 pg/mL. The results should be used in conjunction with clinical conditions of myocardial infarction. (Access High Sensitivity Troponin I Instructions For Use, Elizabeth Ritu, December 2017) Anion gap [Moles/Vol] 12 mmol/L Normal 6 - 16 mEq/L [facility] Calcium [Mass/Vol] 9.2 mg/dL Normal 8.9 - 11. 1 mg/dL [facility] Chloride [Moles/Vol] 106 mmol/L Normal 101 - 1 11 mmol/L [facility] CO2 [Moles/Vol] 26 mmol/L Normal 21 - 31 mmol/L [facility] Creatinine [Mass/Vol] 0.7 mg/dL Normal 0.5 - 1.3 mg/dL [facility] eGFR 111 mL/min/1.73 m2 Normal >=59mL/mi n/1 .73 m2 [facility] Glucose [Mass/Vol] 122 mg/dL Normal 55 - 199 mg/dL [facility] Potassium [Moles/Vol] 3.6 mmol/L Normal 3.5 - 5.3 mmol/L [facility] Sodium [Moles/Vol] 140 mmol/L Normal 135 - 145 mmol/L [facility] Troponin HS pg/mL Low 10.10 - 27.10 pg/mL [facility] Comment on above: Interpretive Data: T he 95% CI (Confidence Interval) PPV (Positive Predictive Value) for myocardial infarction in females is 38 pg/mL, in males 51 pg/mL. The results should be used in conjunction with clinical conditions of myocardial infarction. (Access High Sensitivity Troponin I Instructions For Use, Elizabeth Ritu, December 2017) Urea nitrogen [Mass/Vol] 15 mg/dL Normal 5 - 21 mg/dL [facility] Urea nitrogen/Creatinine [Mass ratio] 21 mg/mg High 10 - 20 [facility] COAGULATIONOrdered By: Nura Gilbert on 06-06-2024 aPTT Coag (PPP) [Time] 32.8 s Normal 25.1 - 36.5 second(s) [facility] [place] [facility] Comment on above: Interpretive Data: Silvana garsia 15 days - 4 weeks 1 - 5 months 6 - 11 months 1 - 5 years 6 - 10 years 11 - 17 years PTT Mean: 35.4 (27.6-45.6) Mean: 33.5 (24.8-40.7) Mean: 32.4 (25.1-40.7) Mean: 31.6 (24.0-39.2) Mean: 31.6 (26.9-38.7) Mean: 31.0 (24.6-38.4) Pediatric Reference ranges were obtained from a study by Cyrus Robert et al. prepared from 1437 samples obtained at 7 different centers using the same coagulation reagent and instrumentation as [facility] [place]. Currently there are no coagulation studies available worldwide for children to 14 days, and no normal ranges. Heparin therapeutic range (represented by Anti-Factor Xa activity of 0.2 - 0.4 U/mL) corresponds to PTT of 56.6 - 109.0 sec. INR Coag (PPP) [Relative time] 1.06 {INR} Invalid Interpretation Code [facility] [place] [facility] Comment on above: Interpretive Data: I NR results are specifically intended to assess patients stabilized on long-term Anticoagulation therapy suggested INR s Less Intensive Anticoagulation 2.0 3.0 Conventional Range 3.0 4.5 PT Coag (PPP) [Time] 11.9 s Normal 9.4 - 1 2.5 second(s) [facility] [place] [facility] Comment on above: Interpretive Data: 1 5 days - 4 weeks 1 - 5 months 6 -11 months 1 5 years 6 10 years 11 -17 years Mean: 11.2 (9.5 12.6) Mean: 11.0 (9.7 12.8) Mean: 11.0 (9.8 13.0) Mean: 11.3 (9.9 13.4) Mean: 11.7 (10.0 14.6) Mean: 11.8 (10.0 - 14.1) Pediatric Reference ranges were obtained from a study by Cyrus Robert et al. prepared from 1437 samples obtained at 7 different centers using the same coagulation reagent and instrumentation as [facility] [place]. Currently there are no coagulation studies available worldwide for children to 14 days, and no normal ranges. HEMATOLOGYOrdered By: SYSTEM SYSTEM on 06-06-2024 Basophils/100 WBC (Bld) 0.5 % Normal 0.0 - 2.0 % [facility] Basophils/Leukocytes Auto (Bld) [Pure # fraction] 0.0 E9/L Normal 0.0 - 0.2 E9/L [facility] Eosinophils (Bld) [#/Vol] 0.2 E9/L Normal 0.0 - 0.5 E9/L [facility] Eosinophils/100 WBC (Bld) 2.9 % Normal 0.0 - 8.0 % [facility] Erythrocyte distribution width (RBC) [Ratio] 13.1 % Normal 10.9 - 14.2 % [facility] Hematocrit (Bld) [Volume fraction] 36.8 % Normal 34.0 - 46.0 % [facility] Hemoglobin (Bld) [Mass/Vol] 12.8 g/dL Normal 12.0 - 16.0 gm/dL [facility] Lymphocytes (Bld) [#/Vol] 1.5 E9/L Normal 1.0 - 4.0 E9/L [facility] Lymphocytes/100 WBC (Bld) 24.5 % Normal 14.0 - 50.0 % [facility] MCH (RBC) [Entitic mass] 28.5 pg Normal 27.0 - 34.0 pg [facility] MCHC (RBC) [Mass/Vol] 34.8 g/dL Normal 31.4 - 36.0 gm/dL [facility] MCV (RBC) [Entitic vol] 81.8 fL Normal 80.0 - 100.0 fL [facility] Monocytes (Bld) [#/Vol] 0.5 E9/L Normal 0.2 - 1.0 E9/L [facility] Monocytes/100 WBC (Bld) 7.7 % Normal 4.0 - 14.0 % [facility] Neutrophils (Bld) [#/Vol] 3.8 E9/L Normal 2.0 - 7.5 E9/L [facility] Neutrophils/100 WBC (Bld) 64.4 % Normal 36.0 - 75.0 % [facility] Platelet 242.0 E9/L Normal 150.0 - 500.0 E9/L [facility] Platelet mean volume (Bld) [Entitic vol] 6.9 fL Normal 6.4 - 10.8 fL [facility] RBC (Bld) [#/Vol] 4.5 E12/L Normal 4.3 - 5.9 E12/L [facility] WBC corrected for nucl RBC Auto (Bld) [#/Vol] 5.9 E9/L Normal 4.0 - 11.0 E9/L [facility] PT & PTTon 06-06-2024 aPTT Coag (PPP) [Time] 32.8 second(s) Normal 25.1-36.5 [facility] Comment on above: Result Comment: Para meter 15 days - 4 weeks 1 - 5 months 6 - 11 months 1 - 5 years 6 - 10 years 11 - 17 years PTT Mean: 35.4 (27.6-45.6) Mean: 33.5 (24.8-40.7) Mean: 32.4 (25.1-40.7) Mean: 31.6 (24.0-39.2) Mean: 31.6 (26.9-38.7) Mean: 31.0 (24.6-38.4) Pediatric Reference ranges were obtained from a study by Cyrus Robert et al. prepared from 1437 samples obtained at 7 different centers using the same coagulation reagent and instrumentation as [facility] [place]. Currently there are no coagulation studies available worldwide for children to 14 days, and no normal ranges. Heparin therapeutic range (represented by Anti-Factor Xa activity of 0.2 - 0.4 U/mL) corresponds to PTT of 56.6 - 109.0 sec. Performed By: #### 1 [id number] #### [facility] [address] [place] [address] INR Coag (PPP) [Relative time] 1.06 {INR} Invalid Interpretation Code [facility] Comment on above: Result Comment: INR results are specifically intended to assess patients stabilized on long-term Anticoagulation therapy suggested INR???s ???Less Intensive Anticoagulation??? 2.0 ??? 3.0 Conventional Range 3.0 ??? 4.5 Performed By: #### 1 [id number] #### [facility] [address] [place] [address] PT Coag (PPP) [Time] 11.9 second(s) Normal 9.4-12.5 [facility] Comment on above: Result Comment: 15 d ays - 4 weeks 1 - 5 months 6 -11 months 1 ??? 5 years 6 ??? 10 years 11 -17 years Mean: 11.2 (9.5 ??? 12.6) Mean: 11.0 (9.7 ??? 12.8) Mean: 11.0 (9.8 ??? 13.0) Mean: 11.3 (9.9 ??? 13.4) Mean: 11.7 (10.0 ??? 14.6) Mean: 11.8 (10.0 - 14.1) Pediatric Reference ranges were obtained from a study by Cyrus Robert et al. prepared from 1437 samples obtained at 7 different centers using the same coagulation reagent and instrumentation as [facility] [place] Currently there are no coagulation studies available worldwide for children to 14 days, and no normal ranges. Performed By: #### 1 [id number] #### [facility] [address] [place] [address] Pre-Arrival Noteon Pre-Arrival Note Pre-Arrival Note Pre-Arrival Summary Name: Lexa Current Date: 06/06/2024 22:13:13 EST Gender: Female Date of : Age: 39 Pre-Arrival Type: EMS ETA: 06/06/2024 22:33:00 EST Primary Care Physician: Presenting Problem: Chest pain Pre-Arrival User: Referring Source: Location: [place] Completion Date/Time: 06/06/2024 22:04:00 [facility] Emergency Department Pre-Hospital Report Form Vital Signs: Pre-Hospital Report: Treatment in Route: Response to Treatment: Misc. Issues: Normal [facility] Troponin 0 Hr.on 06-06-2024 Troponin HS <2.30 Low 10.10-27.10 [facility] Comment on above: Result Comment: The 95% CI (Confidence Interval) PPV (Positive Predictive Value) for myocardial infarction in females is 38 pg/mL, in males 51 pg/mL. The results should be used in conjunction with clinical conditions of myocardial infarction. (Access High Sensitivity Troponin I Instructions For Use, Elizabeth Ritu, December 2017) Performed By: #### 1 [id number] #### [facility] [address] [place] [address] eGFRon 06-06-2024 eGFR 111 mL/min/1.73 m2 Normal >=59 [facility] Comment on above: Performed By: #### 1 [id number] #### [facility] [address] [place] [address] ALLIED HEALTHon 08-04-2019 ALLIED HEALTH HNO ID: [id number] Author: Iva Mendes (Rt) Service: Radiology Author Type: Food Dehydrator Operator Type: Allied Health Filed: 08/03/2019 11:51 PM Note Text: Radiology Service Progress Note PATIENT NAME: Ella Vega DATE OF SERVICE: August 03, 2019 TIME: 11:51 PM PATIENT IDENTITY VERIFICATION COMPLETED USING TWO (2) IDENTIFIERS: Name and Date of confirmed by patient verbally. PATIENT GENDER DATA: Female. status: : No status: NO. PATIENT RELEVANT IMPLANT DATA REVIEWED: Not Applicable RADIOLOGY DEPARTMENT: General X-ray: Exam(s) Completed: Chest X-Ray PERIPHERAL IV DATA: Not applicable SIGNED BY: RT Vaughn August 03, 2019 11:51 PM Normal [facility] CBC and Differentialon 08-03 Abs Baso <0.03 Normal <0.11 [facility] Comment on above: Performed By: #### C BCDIF, DDMER, CMP, LIPA #### [facility] [address] [address] Abs [place] 0.50 k/uL Normal <0.87 [facility] Comment on above: Performed By: #### C BCDIF, DDMER, CMP, LIPA #### [facility] [address] [address] Abs Neut 6.20 k/uL Normal 1.45-7.50 [facility] Comment on above: Performed By: #### C BCDIF, DDMER, CMP, LIPA #### [facility] [address] [place] [address] Basophils/100 WBC (Bld) 0.3 % Normal [facility] Comment on above: Performed By: #### C BCDIF, DDMER, CMP, LIPA #### [facility] [address] [place] [address] Eosinophils (Bld) [#/Vol] 0.05 10*3/uL Normal <0.46 [facility] Comment on above: Performed By: #### C BCDIF, DDMER, CMP, LIPA #### [facility] [address] [place] [address] Eosinophils/100 WBC (Bld) 0.7 % Normal [facility] Comment on above: Performed By: #### C BCDIF, DDMER, CMP, LIPA #### [facility] [address] [place] [address] Erythrocyte distribution width (RBC) [Ratio] 13.2 % Normal 11.5-15.0 [facility] Comment on above: Performed By: #### C BCDIF, DDMER, CMP, LIPA #### [facility] [address] [place] [address] Hematocrit (Bld) [Volume fraction] 39.8 % Normal 36.0-46.0 [facility] Comment on above: Performed By: #### C BCDIF, DDMER, CMP, LIPA #### [facility] [address] [place] [address] Hemoglobin (Bld) [Mass/Vol] 13.2 g/dL Normal 11.5-15.5 [facility] Comment on above: Performed By: #### C BCDIF, DDMER, CMP, LIPA #### [facility] [address] [phone] Lymphocytes (Bld) [#/Vol] 0.91 10*3/uL Low 1.00-4.00 [facility] Comment on above: Performed By: #### C BCDIF, DDMER, CMP, LIPA #### [facility] [address] Lymphocytes/100 WBC (Bld) 11.8 % Normal [facility] Comment on above: Performed By: #### C BCDIF, DDMER, CMP, LIPA #### [facility] [address] [place] [address] MCH (RBC) [Entitic mass] 26.5 pG Normal 26.0-34.0 [facility] Comment on above: Performed By: #### C BCDIF, DDMER, CMP, LIPA #### [facility] [address] [place], [place] [phone] MCHC (RBC) [Mass/Vol] 33.2 g/dL Normal 30.5-36.0 [facility] Comment on above: Performed By: #### C BCDIF, DDMER, CMP, LIPA #### [facility] [address] [place] [address] MCV (RBC) [Entitic vol] 79.8 fL Low 80.0-100.0 [facility] Comment on above: Performed By: #### C BCDIF, DDMER, CMP, LIPA #### [facility] [address] [place], [place] [phone] Monocytes/100 WBC (Bld) 6.5 % Normal [facility] Comment on above: Performed By: #### C BCDIF, DDMER, CMP, LIPA #### [facility] [address] [place], [place] [phone] Neutrophils/100 WBC (Bld) 80.7 % Normal [facility] Comment on above: Performed By: #### C BCDIF, DDMER, CMP, LIPA #### [facility] [address] [place] [phone] Platelet mean volume (Bld) [Entitic vol] 9.7 fL Normal 9.0-12.7 [facility] Comment on above: Performed By: #### C BCDIF, DDMER, CMP, LIPA #### [facility] [address] [address] Platelets (Bld) [#/Vol] 233 10*3/uL Normal 150-400 [facility] Comment on above: Performed By: #### C BCDIF, DDMER, CMP, LIPA #### [facility] [address] [address] RBC (Bld) [#/Vol] 4.99 10*6/uL Normal 3.90-5.20 [facility] Comment on above: Performed By: #### C BCDIF, DDMER, CMP, LIPA #### [facility] [address] [address] WBC (Bld) [#/Vol] 7.68 10*3/uL Normal 3.70-11.00 [facility] Comment on above: Performed By: #### C BCDIF, DDMER, CMP, LIPA #### [facility] [address] [address] Comp Metabolic Panelon 08-03 Albumin [Mass/Vol] 4.7 g/dL Normal 3.9-4.9 [facility] Comment on above: Performed By: #### C BCDIF, DDMER, CMP, LIPA #### [facility] [address] [address] ALP [Catalytic activity/Vol] 85 U/L Normal 34-123 [facility] Comment on above: Performed By: #### C BCDIF, DDMER, CMP, LIPA #### [facility] [address] [address] ALT [Catalytic activity/Vol] 11 U/L Normal 7-38 [facility] Comment on above: Performed By: #### C BCDIF, DDMER, CMP, LIPA #### [facility] [address] [address] Anion gap [Moles/Vol] 15 mmol/L Normal 9-18 [facility] Comment on above: Performed By: #### C BCDIF, DDMER, CMP, LIPA #### [facility] [address] [facility] [phone] AST [Catalytic activity/Vol] 15 U/L Normal 13-35 [facility] Comment on above: Performed By: #### C BCDIF, DDMER, CMP, LIPA #### [facility] [address] [facility] [phone] Bilirubin [Mass/Vol] 0.2 mg/dL Normal 0.2-1.3 [facility] Comment on above: Performed By: #### C BCDIF, DDMER, CMP, LIPA #### [facility] [address] [facility] [phone] Calcium [Mass/Vol] 9.7 mg/dL Normal 8.5-10.2 [facility] Comment on above: Performed By: #### C BCDIF, DDMER, CMP, LIPA #### [facility] [address] [phone] Chloride [Moles/Vol] 99 mmol/L Normal 97-105 [facility] Comment on above: Performed By: #### C BCDIF, DDMER, CMP, LIPA #### [facility] [address] [phone] CO2 [Moles/Vol] 23 mmol/L Normal 22-30 [facility] Comment on above: Performed By: #### C BCDIF, DDMER, CMP, LIPA #### [facility] [address] [facility] [phone] Creatinine [Mass/Vol] 0.61 mg/dL Normal 0.58-0.96 [facility] Comment on above: Performed By: #### C BCDIF, DDMER, CMP, LIPA #### [facility] [address] [facility] [phone] eGFR- Amer. >60 Normal [facility] Comment on above: Performed By: #### C BCDIF, DDMER, CMP, LIPA #### [facility] [address] [facility] [phone] GFR/1.73 sq M predicted among non-blacks MDRD (S/P/Bld) [Vol rate/Area] mL/min/{1.73_m2} Normal [facility] Comment on above: Result Comment: eGFR (Estimated GFR) Units of measure: mL/min/1.73 meters squared eGFR is derived from the reexpressed MDRD Study equation using the following parameters: serum creatinine, age, gender and race. The creatinine assay has been calibrated to be traceable to IDMS. An eGFR <60 mL/min/1.73m2 for >3 months is consistent with chronic kidney disease. Refer to KDOQI guidelines for clinical interpretation. In patients with unstable renal function, e.g. those with acute kidney injury, the eGFR may not accurately reflect actual GFR. Performed By: #### C BCDIF, DDMER, CMP, LIPA #### [facility] [address] [place] [address] Glucose [Mass/Vol] 133 mg/dL High 74-99 [facility] Comment on above: Result Comment: The [place] [employer] (ADA) provides guidance for cutoff values for fasting glucose and random glucose. The ADA defines fasting as no caloric intake for at least 8 hours. Fasting plasma glucose results between 100 to 125 mg/dL indicate increased risk for diabetes (prediabetes). Fasting plasma glucose results greater than or equal to 126 mg/dL meet the criteria for diagnosis of diabetes. In the absence of unequivocal hyperglycemia, results should be confirmed by repeat testing. In a patient with classic symptoms of hyperglycemia or hyperglycemic crisis, random plasma glucose results greater than or equal to 200 mg/dL meet the criteria for diagnosis of diabetes. Reference: Standards of Medical Care in Diabetes 2016, [place] [employer]. Diabetes Care. 2016.39(Suppl 1). Performed By: #### C BCDIF, DDMER, CMP, LIPA #### [facility] [address] [place] [address] Potassium [Moles/Vol] 3.6 mmol/L Low 3.7-5.1 [facility] Comment on above: Performed By: #### C BCDIF, DDMER, CMP, LIPA #### [facility] [address] [place] [address] Protein [Mass/Vol] 7.5 g/dL Normal 6.3-8.0 [facility] Comment on above: Performed By: #### C BCDIF, DDMER, CMP, LIPA #### [facility] [address] [place] [address] Sodium [Moles/Vol] 137 mmol/L Normal 136-144 [facility] Comment on above: Performed By: #### C BCDIF, DDMER, CMP, LIPA #### [facility] [address] [phone] Urea nitrogen [Mass/Vol] 16 mg/dL Normal 7-21 [facility] Comment on above: Performed By: #### C BCDIF, DDMER, CMP, LIPA #### [facility] [address] [phone] D dimeron 08-04-2019 D dimer <190 Normal <500 [facility] Comment on above: Result Comment: 500 ng/mL FEU is the D Dimer cutoff to exclude DVT (deep vein thrombosis) and PE (pulmonary embolism) in patients with a low pre test probability. Supplemental Comment: In patients over 50 years with a low pre test probability for DVT and/or PE, an age adjusted D dimer cutoff can be calculated as [age x 10] ng/mL FEU. For example, a patient of 88 years would have an age adjusted D dimer cutoff of 880 ng/mL FEU. For patients with a suspected DVT, a D dimer level below 500 ng/mL FEU has a negative predictive value of >98.9%, a sensitivity of >96.9% and a specificity of >35.7%. For patients with a suspected PE, a D dimer level below 500 ng/mL FEU has a negative predictive value of >98.5%, and a sensitivity of >96.5% and a specificity of >38.8%. Reference: Kwaku M, et al. MILANA 2014 311:1117 and Van Beronica N, et al. Chasity Int Med 2016 165:253. Performed By: #### C BCDIF, DDMER, CMP, LIPA #### [facility] [address] [phone] ECG COMPLETEon 08-04-2019 ECG COMPLETE NAME : ELLA VEGA PID : [id number] : 1985 Gender : Female Race : ORD : [id number] Procedure Date : Aug 03 2019 22:52:51 Edit Date : Aug 06 2019 08:41:18 Diagnosis:NORMAL SINUS RHYTHM NORMAL ECG no STEMI Confirmed by MD SANDOVAL ROBERT ([id number]), editorial cartoonist YULISA CARTAGENA ([id number]) on 08/06/2019 8:41:14 AM Ventricular Rate : 98 BPM Atrial Rate : 98 BPM P-R Interval : 140 ms QRS Duration : 80 ms Q-T Interval : 352 ms QTC Calculation(Bazett) : 449 ms P Phoenix : 73 degrees R Phoenix : 69 degrees T Phoenix : 48 degrees Test Reason : Chest Pain Location : 1 : ER 9 Overread By : MD SANDOVAL ROBERT Edited By : YULISA CARTAGENA Referred By : SHANELLE Acquired by : ARSLAN [facility] ED NOTEon 08-04-2019 ED NOTE HNO ID: [id number] Author: Oneyda (Rn) HAMMAD Mckinney Service: ? Author Type: Registered Nurse Type: ED Notes Filed: 08/03/2019 11:45 PM Note Text: Xray at bedside [facility] ED NOTE HNO ID: [id number] Author: Oneyda ZhaoRn) HAMMAD Mckinney Service: ? Author Type: Registered Nurse Type: ED Notes Filed: 08/03/2019 11:10 PM Note Text: Patient reports all symptoms started about 2000 tonight (chest tightness, diarrhea, itching). Took one benadryl at 2100, not effective (no hives present) [facility] ED PROV NOTEon 08-04-2019 ED PROV NOTE HNO ID: [id number] Author: Carloz Sandoval MD Service: ? Author Type: Physician Type: ED Provider Notes Filed: 08/04/2019 12:49 AM Note Text: ED Provider Note Patient Name: Ella Vega SERVICE DATE: 08/03/19 History Patient presents with: Allergic Reaction 34-year-old female, with a history of IBS, presents to the ED concerned about an allergic reaction. She states that she had dinner around p.m. that was corn dog and broccoli cheese soup which is not uncommon for her to eat. She took a nap a little while later she was feeling sleepy and when she woke up she was feeling itchiness in her chest, tightness in her chest, diarrhea and an overall feeling of shakiness. No rash. She took a Benadryl concerned she was having an allergic reaction. No recent fever or illness. No travel. No changes in diet, food, medications, soaps, lotions. No one else at home with the same symptoms History provided by: Patient PAST MEDICAL HISTORY Diagnosis Date - Ectopic , tubal 2016 left salpingectomy - Functional ovarian cysts - IBS (irritable bowel syndrome) - IUD (intrauterine device) in place 04/21/2019 Neymar [id number] PAST SURGICAL HISTORY Procedure Laterality Date - SALPINGECTOMY OR OOPHERECTOMY-ECTOPIC Left 2015 LS salpingectomy, DANDC (ectopic) - TREATMENT - MISSED 2011 [facility] HISTORY Problem Relation Age of Onset - other (IBS) Mother constipation - other (FE) Mother 30 unknown reason - Ischemic Heart Disease Paternal Grandfather - Hypertension Maternal Grandfather - Cataract Maternal Grandfather - Macular Degen Maternal Grandfather - other (pituitary tumor) Maternal Grandfather - other (unknown) Father does not have relationship, late 50's ?possible OD - Breast Cancer No Family History - Cervical Cancer No Family History - Ovarian cancer No Family History - Uterine Cancer No Family History - Colon Cancer No Family History - Pancreatic Cancer No Family History - Prostate Cancer No Family History Social History Tobacco Use - Smoking status: Never Smoker - Smokeless tobacco: Never Used Substance and Sexual Activity - Alcohol use: Not Currently Comment: one drink monthly - Drug use: No - Sexual activity: Yes Partners: Male control/protection: I.U.D. Comment: Neymar 04/21/19 [id number] ALLERGIES Allergen Reactions - Ciprofloxacin Hives - Keflex [Cephalexin] Hives - Shellfish Itching VERIFIED BY SKIN TESTING - Sulfa (Sulfonamide * Hives - Augmentin [Amoxicil* Rash, Swelling - Erythromycin Hives - Seasonal Allergies Unknown Trees, molds, grasses verified by skin testing Review of Systems Constitutional: Negative for chills and fever. HENT: Negative. Eyes: Negative for photophobia and visual disturbance. Respiratory: Positive for shortness of breath. Negative for cough. Cardiovascular: Positive for chest pain. Gastrointestinal: Positive for diarrhea. Negative for abdominal pain, blood in stool, constipation, nausea and vomiting. Genitourinary: Negative for difficulty urinating and dysuria. Musculoskeletal: Negative for myalgias and neck pain. Skin: Negative for rash and wound. Itchiness to chest Neurological: Negative for dizziness, weakness, light-headedness and headaches. Hematological: Negative. Psychiatric/Behaviora l: The patient is not nervous/anxious. Physical Exam BP 119/63 Pulse 102 Temp (Src) 98.1 (Oral) Resp 18 Ht 5' 2 (1.58m) Wt 115 lb (52.2kg) SpO2 98% BMI 21.03 kg/(m2). O2 Therapy: Room Air Physical Exam Vitals signs and nursing note reviewed. Constitutional: General: She is not in acute distress. Appearance: Normal appearance. She is not ill-appearing or toxic-appearing. Comments: Patient appears mildly anxious but pleasant HENT: Head: Normocephalic. Nose: Nose normal. No congestion or rhinorrhea. Mouth/Throat: Mouth: Mucous membranes are moist. Pharynx: Oropharynx is clear. No oropharyngeal exudate or posterior oropharyngeal erythema. Comments: Without angioedema; oropharynx patent Eyes: Extraocular Movements: Extraocular movements intact. Conjunctiva/sclera: Conjunctivae normal. Neck: Musculoskeletal: Normal range of motion and neck supple. No neck rigidity. Cardiovascular: Rate and Rhythm: Regular rhythm. Tachycardia present. Pulmonary: Effort: Pulmonary effort is normal. No respiratory distress. Breath sounds: Normal breath sounds. No wheezing or rhonchi. Abdominal: Palpations: Abdomen is soft. Tenderness: There is no abdominal tenderness. There is no guarding. Musculoskeletal: Normal range of motion. Skin: Findings: No rash. Comments: No noticeable rash to chest wall or urticaria elsewhere Neurological: General: No focal deficit present. Mental Status: She is alert and oriented to person, place, and time. Cranial Nerves: No cranial nerve deficit. Psychiatric: Mood and Affect: Mood normal. Diagnostic Testing ED Labs Ordered and Reviewed CBC + DIFF - Abnormal; Notable for the following components: Result Value Ref Range MCV 79.8 (*) 80.0 - 100.0 fL Abs Lymph 0.91 (*) 1.00 - 4.00 k/uL All other components within normal limits COMP METABOLIC PANEL - Abnormal; Notable for the following components: Glucose 133 (*) 74 - 99 mg/dL Potassium 3.6 (*) 3.7 - 5.1 mmol/L All other components within normal limits D-DIMER HIGH SENSITIVITY TROPONIN T LIPASE BLD HIGH SENSITIVITY TROPONIN T XR CHEST 1V FRONTAL PORT Final Result IMPRESSION: No acute abnormality Outreach Rep: RAHEEL Transcribe Date/Time: Aug 03 2019 11:55P Dictated by : DAVID SCHROEDER MD This examination was interpreted and the report reviewed and electronically signed by: DAVID SCHROEDER MD on Aug 03 2019 11:55PM EST Procedures ED Course / Clinical Impression Clinical Impressions as of Aug 02 2341 Pruritus SOB (shortness of breath) Shakiness MDM / Disposition / Plan Patient presents to the ED with concern of allergic reaction. She ate dinner fine, and when she woke up from a nap around 8 pm she felt itching to her chest, SOB, mild chest tightness and diarrhea. She took a benadryl. No rash noted. Without difficulty swallowing. On exam, VS stable. She is mildly anxious. No obvious urticaria. Lungs clear. Without angioedema. Labs are normal including troponin and dimer. EKG without ST changes. CXR is negative for infiltrate. At this point I am comfortable with DC home to continue Benadryl for any continued itching. She is feeling better, still a little anxious but relieved with negative workup. She will call her PCP tomorrow for follow up. Additional Tests or Interventions: ECG EKG INTERPRETATION: Ordered and Reviewed Rhythm: Normal sinus rhythm Rate: 98 Phoenix: Normal axis Intervals: Normal RI interval QRS Complex: Normal ST Segment: Normal ST-T segments QT Interval: Normal Compared with Prior: Interpretation performed by Eloisa Chowdhury PA-C The patient was DISCHARGED: Counseled patient regarding lab results AND radiology results AND suspected diagnosis AND need for follow-up. Discharged home with verbal and written instructions. They were instructed to return as needed for persistent or worsening symptoms or any new concerns. Condition at time of disposition: stable SIGNATURE: JOE Daniels (Pa) 08/04/19 0006 ER ATTENDING NOTE: . I have independently seen and evaluated this patient as well. Clinically, she appears well. I feel that she is likely getting perhaps a viral syndrome. She did have some diarrhea. Her cardiac testing is all within normal limits. D-dimer is undetectable. Chest x-ray is clear. I advised her to return for any increased symptoms as she is only been experiencing this for the past few hours. The only abnormality of significance, as her glucose is 1:30. She not eaten since 6:30. I advised her to follow up with her primary physician in one week to consider having a fasting glucose measured. Disposition: Discharged home Condition: Stable Carloz Sandoval MD 08/04/19 0049 Normal [facility] High Sens Troponin Ton 08-03 High Sensitivity MARTIN <6 Normal <12 [facility] Comment on above: Performed By: #### C BCDIF, DDMER, CMP, LIPA #### [facility] [address] [facility] [phone] High Sensitivity MARTIN <6 Normal <12 [facility] Comment on above: Performed By: #### H STNT #### [facility] [address] [phone] Lipaseon 08-04-2019 Lipase [Catalytic activity/Vol] 34 U/L Normal 16-61 [facility] Comment on above: Performed By: #### C BCDIF, DDMER, CMP, LIPA #### [facility] [address] [facility] [phone] XR CHEST 1V FRONTAL PORTon 0 08-04-2019 XR CHEST 1V FRONTAL PORT * * *Final Report* * * DATE OF EXAM: Aug 03 2019 11:40PM MDX [id number] - XR CHEST 1V FRONTAL PORT / PROCEDURE REASON: Shortness of breath * * * * Physician Interpretation * * * * EXAMINATION: CHEST RADIOGRAPH (PORTABLE SINGLE VIEW AP) Exam Date/Time: 08/03/2019 11:40 PM CLINICAL HISTORY: Shortness of breath MQ: XCPR_5 Comparison: None RESULT: Lines, tubes, and devices: None. Lungs and pleura: No consolidation pleural effusion or pneumothorax. Small right lung base calcified granuloma. Cardiomediastinal silhouette: Stable cardiomediastinal silhouette. Other: No bony abnormalities. IMPRESSION: No acute abnormality Outreach Rep: RAHEEL Transcribe Date/Time: Aug 03 2019 11:55P Dictated by : DAVID SCHROEDER MD This examination was interpreted and the report reviewed and electronically signed by: DAVID SCHROEDER MD on Aug 03 2019 11:55PM EST [id number] N [facility] ANES [place] 02-14-2019 ANES POST HNO ID: [id number] Author: Phillip King Service: Anesthesiology Author Type: Anesthesiologist Type: Anesthesia PostOp Filed: 02/14/2019 8:32 AM Note Text: POST ANESTHESIA EVALUATION NOTE SERVICE DATE: 02/14/2019 SERVICE TIME: 8:32 AM : 1985 Vitals: 02/13/19 1241 02/13/19 1548 02/13/19 2324 02/14/19 0749 Temp: 36.9 ?C (98.4 ?F) 36.7 ?C (98.1 ?F) 36.7 ?C (98.1 ?F) 36.9 ?C (98.4 ?F) 02/13/19 1502 02/13/19 1548 02/13/19 2324 02/14/19 0749 BP: 106/62 111/86 114/63 115/66 02/13/19 1502 02/13/19 1548 02/13/19 2324 02/14/19 0749 Pulse: 87 93 71 78 02/13/19 1241 02/13/19 1548 02/13/19 2324 02/14/19 0749 Resp: 16 16 16 18 02/13/19 0820 02/13/19 0825 02/13/19 0830 02/13/19 0835 SpO2: 98% 99% 98% 98% Validated Vital Signs: Yes POST ANES STATUS: No apparent anesthetic complications. The patient is appropriately hydrated with stable respiratory and cardiovascular status. Patient has safe and adequate airway control. The patient has appropriate pain relief and no significant post operative nausea or vomiting. The patient has achieved baseline mental status. Intra-Operative Events: No Significant Anesthesia Events Further assessment by Anesthesia Service: None Other Remarks: SIGNATURE: Phillip King MD PATIENT NAME: Ella Vega DATE: February 14, 2019 TIME: 8:31 AM PAGER/CONTACT #: [facility] PROGRESSon 02-14-2019 PROGRESS HNO ID: [id number] Author: Molly Boswell Service: Obstetrics Author Type: Nurse Practitioner Type: Progress Notes Filed: 02/14/2019 3:51 PM Note Text: OBSTETRICS PROGRESS NOTE SERVICE DATE: February 14, 2019 SERVICE TIME: 1530 ASSESSMENT: 33 year old female who is Day #1 status post Vaginal, Spontaneous delivery with male . Doing well. Requesting to be discharged today if baby is able to be discharged. Rh+/RI PLAN: Routine care. Encourage patient to use pain meds. . Control: desires IUD at follow up. Discharge today. Discharge instructions given to patient regarding pelvic rest, bathing, stairs, walking, lifting, driving, and follow-up. Patient expresses understanding. Plan of care discussed with: Provider, RN, Patient. SUBJECTIVE: Patient has no current complaints. Tolerating PO intake. Urinating without difficulty. Passing flatus. Pain well controlled with current regimen. Lochia decreasing. Ambulating without difficulty. OBJECTIVE: PHYSICAL EXAM: Heart: RR, S1, S2 Lungs: clear to auscultation Abdomen: Soft Appropriately tender to palpation Bowel sounds present Fundus firm below umbilicus Non-distended Extremities: No calf tenderness and Edema equal bilaterally LAST VITALS: Pulse BP Resp O2 Sat Temp Pain 78 115/66 18 98 % 36.9 ?C (98.4 ?F) 3 Avg Min Max Vitals (last 12 hours) Flowsheet Row Name Average Min Max BP: Systolic 115 115 115 BP: Diastolic 66 66 66 Temp 36.9 ?C (98.4 ?F) 36.9 ?C (98.4 ?F) 36.9 ?C (98.4 ?F) Pulse 78 78 78 Resp 18 18 18 HT/WT/BMI: Height Weight BMI 157.5 cm (5' 2) 62.6 kg (138 lb) 25.24 LABS ABO/RH: 02/13/2019: O POSITIVE RUBELLA: 07/08/2018: 2.17 Index Value HANDH: Hematocrit (%) Date Value 02/13/2019 33.9 Hemoglobin (g/dL) Date Value 02/13/2019 10.3 Diagnostic tests reviewed for today's visit: Most recent labs SIGNATURE: Molly Boswell APRN.CNP PATIENT NAME: Ella Vega DATE: February 14, 2019 TIME: 3:50 PM [facility] ANES PREOPon 02-13-2019 ANES PREOP HNO ID: [id number] Author: Gerson Wilson Service: Anesthesiology Author Type: Anesthesiologist Type: Anesthesia PreOp Filed: 02/13/2019 8:49 AM Note Text: OB ANESTHESIA PRE-PROCEDURE ASSESSMENT I reviewed the pertinent patient history and agree with the CELLULOID TRIMMER's recommended plan for care. Gerson Wilson MD SERVICE DATE: 02/13/2019 SERVICE TIME: 0800 Estimated body mass index is 25.24 kg/m? as calculated from the following: Height as of this encounter: 157.5 cm (5' 2). Weight as of this encounter: 62.6 kg (138 lb). ASA Class: 2 Adequate NPO Status: No, last solids at 0330, clears at bedside ALLERGIES Allergen Reactions - Ciprofloxacin Hives - Keflex [Cephalexin] Hives - Shellfish Itching VERIFIED BY SKIN TESTING - Sulfa (Sulfonamide * Hives - Augmentin [Amoxicil* Rash, Swelling - Erythromycin Hives - Seasonal Allergies Unknown Trees, molds, grasses verified by skin testing Airway Assessment: MP 2; Neck ROM: Full ROM without neurologic symptoms; Airway Evaluation: No significant abnormalities Dentition: Teeth intact Symptoms of Sleep Apnea: Denies No results found for: HCT, PLT, APTT, INR, CREAT Vitals: 02/13/19 0630 02/13/19 0631 02/13/19 0632 02/13/19 0752 BP: 102/65 128/64 Pulse: 77 87 79 Resp: 16 Temp: 36.6 ?C (97.9 ?F) TempSrc: Oral SpO2: 100% Weight: 62.6 kg (138 lb) Height: 157.5 cm (5' 2) Previous Anesthesia: No history of adverse event Family history of anesthetic problems: None Additional Physical Exam: Lungs: Clear to auscultation. 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 History of Ectopic Myopia Regular Astigmatism Vitamin D Deficiency Neutropenia (Hcc) Chronic Seasonal Allergic Rhinitis Due to Pollen Supervision of Other Normal Elderly Multigravida PAST MEDICAL HISTORY Diagnosis Date - Ectopic , tubal 2016 left salpingectomy - Functional ovarian cysts - IBS (irritable bowel syndrome) PAST SURGICAL HISTORY Procedure Laterality Date - SALPINGECTOMY OR OOPHERECTOMY-ECTOPIC Left 2016 LS salpingectomy, DANDC (ectopic) - TREATMENT - MISSED 2011 [facility] FAMILY HISTORY Problem Relation Age of Onset - other (IBS) Mother constipation - other (FE) Mother 30 unknown reason - Ischemic Heart Disease Paternal Grandfather - Hypertension Maternal Grandfather - Cataract Maternal Grandfather - Macular Degen Maternal Grandfather - other (pituitary tumor) Maternal Grandfather - other (unknown) Father does not have relationship, late 50's ?possible OD - Breast Cancer No Family History - Cervical Cancer No Family History - Ovarian cancer No Family History - Uterine Cancer No Family History - Colon Cancer No Family History - Pancreatic Cancer No Family History - Prostate Cancer No Family History Social History Tobacco Use - Smoking status: Never Smoker - Smokeless tobacco: Never Used Substance Use Topics - Alcohol use: Not Currently Comment: one drink monthly - Drug use: No Medications Prior to Admission: loratadine (CLARITIN ORAL) Take by mouth. Disp: Rfl: 02/12/2019 at Unknown time EPINEPHrine (EPIPEN) 0.3 mg/0.3 mL auto-injector Inject 0.3 mL intramuscularly as needed (for allergic reaction.Seek emergent medical care immediately after use.Disp:one 2-pack w/corporate sales trainer). Disp: 1 Each Rfl: 1 Unknown at Unknown time vit/iron fum/folic ac ( VITAMIN ORAL) Take by mouth. Disp: Rfl: 02/12/2019 at Unknown time Cholecalciferol, Vitamin D3, (VITAMIN D) 1,000 unit cap Take 4 capsules by mouth once daily. Disp: Rfl: 02/12/2019 at Unknown time Inpatient medications reviewed in [facility]. I have interviewed and examined the patient. I have reviewed the medical record , pertinent consults and/or the pre-anesthesia evaluation, pertinent labs, and test results. Significant changes in the patient's condition since the History and Physical, not otherwise documented in primary service progress notes: No This contains updated information obtained within 48 hours of Surgery/Procedure. SIGNATURE: Janie Gray CRNA PATIENT NAME: Ella Vega DATE: February 13, 2019 TIME: 8:12 AM : 1985 Normal [facility] Blood Gases,Cord,Art (For [facility] and [facility])on 02-13-2019 Base Deficit 2.0 mmol/L Low 4.4-8.3 [facility] Comment on above: Performed By: #### C OBG ####[place] [id number] HCO3 (Bld) [Moles/Vol] 23 mmol/L Normal 17-27 [facility] Comment on above: Performed By: #### C OBG ####[place] [phone] Oxygen (Bld) [Partial pressure] mm[Hg] High 5.5-30.5 [facility] Comment on above: Performed By: #### C OBG ####[place] [phone] pCO2 42 mm Hg Normal 32-66 [facility] Comment on above: Performed By: #### C OBG ####[place] [phone] pH (Bld) 7.36 [pH] Normal 7.18-7.38 [facility] Comment on above: Performed By: #### C OBG ####[place] [phone] CBCon 02-13-2019 Erythrocyte distribution width (RBC) [Ratio] 16.5 % High 11.5-15.0 [facility] Comment on above: Performed By: #### C BC #### [place] [phone] Hematocrit (Bld) [Volume fraction] 33.9 % Low 36.0-46.0 [facility] Comment on above: Performed By: #### C BC #### [phone] Hemoglobin (Bld) [Mass/Vol] 10.3 g/dL Low 11.5-15.5 [facility] Comment on above: Performed By: #### C BC #### [place] [phone] MCH (RBC) [Entitic mass] 21.4 pG Low 26.0-34.0 [facility] Comment on above: Performed By: #### C BC #### [place] [phone] MCHC (RBC) [Mass/Vol] 30.4 g/dL Low 30.5-36.0 [facility] Comment on above: Performed By: #### C BC #### [place] [phone] MCV (RBC) [Entitic vol] 70.3 fL Low 80.0-100.0 [facility] Comment on above: Performed By: #### C BC #### [place] [phone] Platelet mean volume (Bld) [Entitic vol] 10.3 fL Normal 9.0-12.7 [facility] Comment on above: Performed By: #### C BC #### [place] [address] Platelets (Bld) [#/Vol] 180 10*3/uL Normal 150-400 [facility] Comment on above: Performed By: #### C BC #### [place] [phone] RBC (Bld) [#/Vol] 4.82 10*6/uL Normal 3.90-5.20 [facility] Comment on above: Performed By: #### C BC #### [place] [phone] WBC (Bld) [#/Vol] 7.17 10*3/uL Normal 3.70-11.00 [facility] Comment on above: Performed By: #### C BC #### [place] [address] HISTORY PHYSICALon 9 HISTORY PHYSICAL HNO ID: [id number] Author: Priya Howard Service: Obstetrics Author Type: Resident Type: HANDP Filed: 02/13/2019 8:33 AM Note Text: SERVICE DATE: 02/13/2019 SERVICE TIME: 8:32 AM PHYSICAL EXAM MUST BE COMPLETED ON ADMISSION The History and Physical (completed in the past 30 days) has been reviewed and the patient has been examined. The contents accurately reflect the patient's condition with the following additions or revisions since the HANDP was completed. POST DELIVERY CONTRACEPTION: Discussed post-delivery contraception options. Patient received written information about post-delivery contraception options. Would like to discuss at 6 week visit Examination indicates no changes. Current OB/Cervical examination indicates: Dilation: 3.5 (02/13/19711 : Tali Hunt) HAMMAD Turner) cm Station: -2 (02/13/19711 : Tali Turner RN) Effacement: 70 (02/13/19711 : Tali Turner RN) % Presentation: Pelvimetry: Pelvimetry clinically assessed as adequate EFW: 7# 5oz based on clinical assessment. Sutures palpated on cervical exam Labor - SVE: 3.5/70/-2, vertex: sutures palpated on SVE - Membranes: Intact - Contractions: q3-5min, regularly mecca and uncomfortable - Epidural PRN - EFW: 7# 5oz - GBS negative - PMHx: IBS (no Rx) - POBHx: VAVD in [place] (2009), Forceps delivery in [place] (2012), uncomplicated SVDx1 (2013), Ectopic s/p L salpingectomy (2015) ? This HANDP can be found in the Electronic Medical Record dated 02/08. SIGNATURE: Priya Howard MD PATIENT NAME: Ella Vega DATE: 02/13/2019 TIME: 8:32 AM PAGER: [facility] LD NOTEon 02-13-2019 LD NOTE HNO ID: [id number] Author: Amparohaja Leann Service: Obstetrics Author Type: Physician Type: LANDD Delivery Note Filed: 02/13/2019 2:11 PM Note Text: OBSTETRICS DELIVERY SUMMARY - VAGINAL DELIVERY Gestational Age at Delivery: 40w3d Service Date: 02/13/2019 Service Time: 2:09 PM Marc Vega [[id number]] Labor Events Rupture Date: 02/13/19 Rupture Time: 910 Rupture Type: AROM Fluid Color: Clear Induction: No Episiotomy/Laceration : Episiotomy: None Lacerations: 1st Perineal Repair Completed: Yes Sutures Used: 3-0 Polyglactin 910 Estimated Blood Loss (mL): Estimated Blood Loss (mL): 300 Date and Time of : Date of : 02/13/19 Time of : 1319 Delivery Information: Primary Reason for Delivery : Labor Additional Clinicial Indicator(s) for delivery: N/A Delivery type: Vaginal, Spontaneous Presentation: Vertex Shoulder Dystocia Present: No Vacuum Used: No Forceps Used: No Presentation AND Position Presentation: Vertex Position: OA Cord: Complications: None Delayed Cord Clampin-60 sec Placenta: Delivered: 02/13/2019 1:26 PM Removal: Spontaneous Appearance: Intact Anesthesia: Method: Epidural Measurements, Apgars: One Minute : 9 Five Minute : 9 Code [place] Called: No Called to LDR, pt noted to be complete AND +2. Pt delivered a viable male over an intact perineum with an epidural. Presentation DERICK. There was no nuchal cord. Anterior shoulder was delivered, followed by posterior shoulder AND remainder of body. There was no shoulder dystocia. Cord was clamped AND cut. Infant was handed off to RN AND mother. NICU team was not present. Cord gases collected. Placenta delivered spontaneously; 3vc. Fundus was firm; pit started. A digital sweep of the vaginal canal was performed by Dylan Noriega MD and it was ascertained that no instruments or other foreign bodies are retained within the cavity. Sponge, lap, and needle counts were correct times two. Mother and baby are stable and bonding and skin to skin. Baby is in mother's arms. SIGNATURE: Dylan Noriega MD PATIENT NAME: Ella Vega DATE: February 13, 2019 TIME: 2:08 PM [facility] NURSING PROGon 02-13-2019 NURSING PROG HNO ID: [id number] Author: Kirsty (Rn) HAMMAD Mandel Service: Obstetrics Author Type: Registered Nurse Type: Nursing Progress Note Filed: 02/13/2019 5:29 PM Note Text: Nursing Progress Note Patient Name: Ella Vega Patient Location: [id number]/[facility]- 4N-14 Daily Note:Admitted to [address] [place] [address] 14. Oriented to room and unit. Family at bedside. Call hunt with in reach. Labia minora bilaterally ecchymotic and edematous. Tissue is soft. Denies c/o pain in perineum or rectal discomfort but sensation dulled to lower right extremity. This note was completed by: Kirsty Mandel RN [facility] PROCEDUREon 02-13-2019 PROCEDURE HNO ID: [id number] Author: Gerson Wilson Service: Anesthesiology Author Type: Anesthesiologist Type: Procedures Filed: 02/13/2019 8:50 AM Note Text: OB ANESTHESIA PROCEDURE: EPIDURAL LABOR PCEA ANALGESIA PROCEDURE DATE: 02/13/2019 PROCEDURE START TIME: 807 The patient was placed in a sitting position. Timeout was performed and informed consent confirmed (see nurse's documentation). Using sterile technique, the patient's back was prepped and draped. Skin site was infiltrated with local anesthetic. Beginning Pain Score: 10 out of 10 VItals: Last Pulse 02/13/19 : 80 Last BP 02/13/19 : 109/62 Needle: 17 gauge [facility] Depth of Needle: 5 cm Depth of Catheter at Skin: 11 cm Cm of Catheter in Epidural Space: 6 cm Interspace: approximately L3-L4 Number of Attempts: 1 Wet Tap Complication: No Dural Puncture Epidural: No Loss of Resistance: Saline Parasthesias: None Negative heme. Time Amt Medication Pulse B.P. Comments Catheter TEST 0817 3 cc 1.5% Lidocaine with 1:200,000 Epinephrine 74 115/61 Negative Catheter BOLUS 0820 0822 5 cc 3 cc 0.125% Bupivacaine and 5mcg/ml Fentanyl plus 1.25 mcg/ml Epinephrine 84 89 119/56 106/57 INFUSION 0829 Continous Infusion 10 mL/hr PCEA: Bolus 5 mL, Lockout 15 mins 0.0625% Bupivacaine and 2 mcg/mL Fentanyl plus 1.25 mcg/ml Epinephrine 89 106/57 Patient comfortable able to flex knees Patient comfortable able to move legs Placed By Gene HOOPER / Dr. Wilson Pain Score After Treatment: 2 out of 10 See nurses' documentation for additional vitals. SIGNATURE: SANDIE Prakash PATIENT NAME: Ella Vega DATE: February 13, 2019 TIME: 8:41 AM PAGER/CONTACT #: I supervised and was present for the entire procedure. Normal [facility] PROCEDURE HNO ID: [id number] Author: Tali ZhaoRn) HAMMAD Turner Service: Nursing Author Type: Registered Nurse Type: Procedures Filed: 02/13/2019 7:14 AM Note Text: Attestation signed by Sabi Bullard at 02/13/2019 8:01 AM NST SUMMARY PROVIDER ASSESSMENT AND INTERPRETATION Indications for NST: contractions Baseline: 145 Variability: Moderate Accelerations: Present 15 X 15 Decelerations: None Contractions: TOCO: None Interpretation: Category I SIGNATURE: Janet Bullard OBSTETRICS NST SUMMARY SERVICE DATE: February 13, 2019 The patient is a 33 year old female, , who is at 40w3d with an VENITA of 02/10/2019, Based on Ultrasound dating method. NST OBJECTIVE FINDINGS PER NURSE: Start Time: 625 (02/13/19 06 : Tali ZhaoRn) HAMMAD Turner) Complete Time: 708 (10708 : Tali Turner RN) Indications: Other: Comment(contractions) (02/13/19631 : Tali Turner RN) Patient Reason For: check on baby (02/13/19631 : Tali Turner RN) NST Explanation: Procedure Explained;Monitor Explained;Verbalizes Understanding (02/13/19631 : Tali Turner RN) Acoustic Stimulator: No (02/13/19708 : Tali Turner RN) Interventions: Reposition;Oral Fluids Given (02/13/19708 : Tali Turner RN) MONITORING/ASSESSMENT : Baseline: 145 bpm (02/13/19708 : Tali Turner RN) Variability: Moderate (6-25 bpm) (02/13/19708 : Tali Turner RN) Accelerations: Present (02/13/19708 : Tali Turner RN) Decelerations: Decelerations: None (02/13/19708 : Tali Turner RN) Contractions: Irregular (02/13/19708 : Tali Turner RN) Frequency: 2-5 (02/13/19708 : Tali Turner RN) Above information forwarded to Dr. Bullard (02/13/19708 : Tali Turner RN) for final review and interpretation. SIGNATURE: Tali Turner RN PATIENT NAME: Ella Vega DATE: February 13, 2019 TIME: 7:14 AM [facility] PROGRESSon 02-13-2019 PROGRESS HNO ID: [id number] Author: Zak Huang Service: Gynecology Author Type: Resident Type: Progress Notes Filed: 02/13/2019 3:51 PM Note Text: OBGYN Progress Note Asked to assess swelling on vulva. Patient s/p and repair of 1st degree lac. On exam, a 2-3cm area on vulva at 10 o'clock position with soft tissue swelling. No evidence of laceration or abrasion in this area nor in the corresponding area in the vagina. No evidence of hematoma. Patient asymptomatic. Precautions discussed, reassurance provided. Zak Huang MD February 13, 2019 3:51 PM [facility] PROGRESS HNO ID: [id number] Author: Zak Huang Service: Gynecology Author Type: Resident Type: Progress Notes Filed: 02/13/2019 12:28 PM Note Text: OBGYN Intrapartum Progress Note S: pt feeling pressure O: BP 101/55 Pulse 76 Temp 36.5 ?C (97.7 ?F) (Oral) Resp 16 Ht 157.5 cm (5' 2) Wt 62.6 kg (138 lb) LMP 05/06/2018 SpO2 98% BMI 25.24 kg/m? Cx: 7 Membranes: AROM 0911 GBS neg EFW: 7# Presentation: vertex MONITORING/ASSESSMENT : Baseline: 140 bpm (02/13/19 1200 : Tianna (Hammad) HAMMAD Mendes) Variability: Moderate (6-25 bpm) (02/13/19 1200 : Tianna (Hammad) HAMMAD Mendes) Accelerations: Present (02/13/19 1200 : Tianna (Hammad) HAMMAD Mendes) Decelerations: Decelerations: Early (02/13/19 1200 : Tianna (Hammad) HAMMAD Mendes), Decel Frequency: Intermittent (02/13/19 1000 : Tianna (Hammad) HAMMAD Mendse) Contractions: Regular (02/13/19 1200 : Tianna (Hammad) HAMMAD Mendes) Frequency: 1.5-3 (02/13/19 1200 : Tianna (Heladio Mendes RN) A/P: 33 year old 40w3d admitted in labor s/p AROM and pit augmentation. Making cervical change. Expect . H/o VAVD, FAVD (prolonged 2nd phase per report, no documentation) then Zak Huang MD February 13, 2019 12:26 PM [facility] PROGRESS HNO ID: [id number] Author: Ximena Dunham Service: Obstetrics Author Type: Physician Type: Progress Notes Filed: 02/13/2019 12:09 PM Note Text: Ella Vega is a 33 year old at 40w3d admitted for labor. GBS neg. Patient discussed with team during safety rounds. strip reviewed and Cat 1. Continue current plan of care. Ximena Dunham MD February 13, 2019 12:09 PM [facility] PROGRESS HNO ID: [id number] Author: Dylan Noriega Service: Obstetrics Author Type: Physician Type: Progress Notes Filed: 02/13/2019 10:34 AM Note Text: OBSTETRICS INTRAPARTUM PROGRESS NOTE SERVICE DATE: February 13, 2019 SERVICE TIME: 9:13 AM Subjective Patient with no complaints. Objective Temp Min/Max Last 12 Hrs Pre Delivery: Temp Min: 36.5 ?C (97.7 ?F) Min taken time: 02/13/19829 Max: 36.6 ?C (97.9 ?F) Max taken time: 02/13/19630 Last Pulse/Resp/O2/Temp: Pulse Resp O2 Sat Temp 80 16 98 % 36.5 ?C (97.7 ?F) BP Trend (last 4 values) 02/13/1981602/13/1981802/13/1982002/13/19822 BP: 115/61 119/56 110/62 109/62 Pain Score Trend (last 4 values) 02/13/1962902/13/19 0755 02/13/19829 Pain Level: 8 10 2 PHYSICAL EXAM: General: comfortable Cervical Exam Trend (last 4 values) 02/13/1963502/13/19 0712 02/13/19908 Dilation: 3 3.5 4 Effacement (%): 70 70 90 Station: -2 -2 -2 Membranes: Membrane Status: Artificial Rupture Date: 02/13/19 Rupture Time: 910 Amniotic Fluid Color: Clear Amniotic Fluid Amount: Scant Total ROM Time: 2m Additional Findings: AROM performed during this exam. Clear fluid, head well applied to cervix Monitoring: Baseline: 145 bpm (02/13/19829 : Tianna Mendes RN) Variability: Moderate (6-25 bpm) (02/13/19829 : Tianna Mendes RN) Accelerations: Present (02/13/19829 : Tianna Mendes RN) Decelerations: Decelerations: None (02/13/19829 : Tianna Mendes RN) Contractions: Irregular (02/13/19829 : Tianna Mendes RN) Frequency: 5-10 (02/13/19829 : Tianna Mendes RN) NST Interpretation: FHR Category: 1 (02/13/19829 : Tianna ZhaoRn) HAMMAD Mendes) Labs: Diagnostic tests reviewed for today's visit: Most recent labs and imaging results. Assessment/Plan 33 year old EGA:40w3d. Admitted for labor. FHR Category: Category I Labor - SVE:?/-2 at this time - Membranes: AROM at 9:09 for clear fluid - Contractions: q3-5min, regularly mecca - Epidural?in place - EFW:?7#?5oz - GBS?negative - PMHx:?IBS (no Rx) - POBHx:?VAVD in [place] (2009), Forceps delivery in [place] (2013), uncomplicated SVDx1 (2013), Ectopic s/p L salpingectomy (2015) Plan of care discussed with: Provider and Patient. SIGNATURE: Priya Howard MD PATIENT NAME: Ella Vega DATE: February 13, 2019 TIME: 9:13 AM PAGER/CONTACT #: Attending Note I evaluated the patient and personally participated in the rodriguez components. I agree with the resident's findings and plan as documented and have discussed the case and management of the patient's care with the resident. Plan of care discussed with: Provider, RN, Patient. Signature: Dylan Noriega MD Date: February 13, 2019 Time: 10:33 AM [facility] Pre Delivery T+Son 9 ABO/RH(D) Positive [facility] Comment on above: Performed By: #### P PEARL #### [facility] [address] [place] [address] PROCEDUREon 02-09-2019 PROCEDURE HNO ID: [id number] Author: Rebecca (Rn) HAMMAD Choudhury Service: Obstetrics Author Type: Registered Nurse Type: Procedures Filed: 02/08/2019 10:32 PM Note Text: Attestation signed by Morgan Herrera at 02/11/2019 8:07 PM OBSTETRICS MONITORING ASSESSMENT NST Interpretation: FHR Category: 1 (02/08/192099 : Rebecca Choudhury RN) Disposition: PROVIDER INTERPRETATION: Category I SIGNATURE: Morgan Herrera MD PATIENT NAME: Ella Vega DATE: February 11, 2019 TIME: 8:07 PM OBSTETRICS NST SUMMARY SERVICE DATE: February 08, 2019 The patient is a 33 year old female, , who is at 39w5d with an VENITA of 02/10/2019, Based on Ultrasound dating method. NST OBJECTIVE FINDINGS PER NURSE: Start Time: 2029 (02/08/192099 : Rebecca Choudhury RN) Complete Time: 2099 (02/08/192099 : Rebecca Choudhury RN) Indications: Other: Comment(ctx) (02/08/192099 : Rebecca Choudhury RN) Patient Reason For: NST Explanation: Procedure Explained;Monitor Explained;Verbalizes Understanding (02/08/192099 : Rebecca Choudhury RN) Acoustic Stimulator: No (02/08/192099 : Rebecca Choudhury RN) Interventions: MONITORING/ASSESSMENT : Baseline: 140 bpm (02/08/192099 : Rebecca Choudhury RN) Variability: Moderate (6-25 bpm) (02/08/192099 : Rebecca Choudhury RN) Accelerations: Present (02/08/192099 : Rebecca Choudhury RN) Decelerations: Decelerations: None (02/08/192099 : Rebecca Choudhury RN) Contractions: Not present (02/08/192099 : Rebecca Choudhury RN) Frequency: x2 (02/08/19 2030 : Rebecca Choudhury RN) Above information forwarded to Dr Herrera (02/08/19 2100 : Rebecca Choudhury RN) for final review and interpretation. SIGNATURE: Rebecca Choudhury RN PATIENT NAME: Ella Vega DATE: February 08, 2019 TIME: 10:32 PM [facility] HISTORY PHYSICALon HISTORY PHYSICAL HNO ID: [id number] Author: Eduard Ricks MD Service: Obstetrics Author Type: Resident Type: HANDP Filed: 02/08/2019 11:17 PM Note Text: Attestation signed by Morgan Herrera at 02/11/2019 8:05 PM I evaluated and examined this patient and reviewed the medical record. I discussed the assessment and plan with the resident. I agree with the note as written. Alex Herrera MD OBSTETRICS HISTORY AND PHYSICAL SERVICE DATE: February 08, 2019 SERVICE TIME: 8:40 PM Subjective Patient's stated reason for arrival: ctx CHIEF COMPLAINT: Contractions HISTORY OF THE PRESENT ILLNESS: The patient is a 33 year old female, , who is at 39w5d with an VENITA of 02/10/2019, Based on Ultrasound dating method. Patient is here complaining of q8-10min contractions since 9am for 2 hours, then contractions started again at 5pm, q6-8 mins that are less painful as the morning contractions. Good movement. Denies vaginal bleeding., Denies leaking of fluid. GBS-. PMH of IBS, denies history of asthma, or HTN. 3 prior 's. 1 VAVD and 1 FAVD. Pelvis proven to 7lb 10 oz. 02/03 cervical exam 1.5/50/-3. Normal 1 hour glucola. POST DELIVERY CONTRACEPTION: Discussed post-delivery contraception options. Patient received written information about post-delivery contraception options. Does not desire contraception. Still considering. HISTORY REVIEW PAST MEDICAL HISTORY Diagnosis Date - Ectopic , tubal 2016 left salpingectomy - Functional ovarian cysts - IBS (irritable bowel syndrome) PAST SURGICAL HISTORY Procedure Laterality Date - SALPINGECTOMY OR OOPHERECTOMY-ECTOPIC Left 2015 LS salpingectomy, DANDC (ectopic) - TREATMENT - MISSED 2011 [facility] H[facility]ORY Problem Relation Age of Onset - other (IBS) Mother constipation - other (FE) Mother 30 unknown reason - Ischemic Heart Disease Paternal Grandfather - Hypertension Maternal Grandfather - Cataract Maternal Grandfather - Macular Degen Maternal Grandfather - other (pituitary tumor) Maternal Grandfather - other (unknown) Father does not have relationship, late 50's ?possible OD - Breast Cancer No Family History - Cervical Cancer No Family History - Ovarian cancer No Family History - Uterine Cancer No Family History - Colon Cancer No Family History - Pancreatic Cancer No Family History - Prostate Cancer No Family History Social History Tobacco Use - Smoking status: Never Smoker - Smokeless tobacco: Never Used Substance Use Topics - Alcohol use: Not Currently Comment: one drink monthly - Drug use: No Obstetric History T3 L3 SAB1 TAB0 Ectopic1 Multiple0 Live Births3 Name of Baby 1: Michael Date: 2009 GA: 38w6d Delivery: Vaginal, Vacuum (Extractor) Apgar1: Not recorded Apgar5: Not recorded Living: Living Name of Baby 2: Not recorded Date: 2011 GA: Not recorded Delivery: MISSED AB Apgar1: Not recorded Apgar5: Not recorded Living: Name of Baby 3: Jerzy Date: 2012 GA: 40w4d Delivery: Vaginal, Forceps Apgar1: Not recorded Apgar5: Not recorded Living: Living Name of Baby 4: Dany Date: 05/02/14 GA: 41w2d Delivery: Vaginal, Spontaneous Apgar1: 8 Apgar5: 9 Living: Living Name of Baby 5: Not recorded Date: 05/27/15 GA: 6w3d Delivery: ECTOPIC Apgar1: Not recorded Apgar5: Not recorded Living: Not recorded Name of Baby 6: Not recorded Date: Not recorded GA: Not recorded Delivery: Not recorded Apgar1: Not recorded Apgar5: Not recorded Living: Not recorded Active Non-Hospital Problems Diagnosis Date Noted - Supervision of other normal 07/08/2018 - Elderly multigravida 07/08/2018 - Chronic seasonal allergic rhinitis due to pollen 04/25/2017 - Neutropenia (HCC) 03/26/2017 - Vitamin D deficiency 03/23/2016 - Myopia 03/16/2016 - Regular astigmatism 03/16/2016 - History of ectopic 05/27/2015 Overview Note: Left salpingectomy 2015 - Intradermal nevus(changing on right chest) 04/05/2015 - Junctional nevus 04/05/2015 - IBS (irritable bowel syndrome) - Functional ovarian cysts ALLERGIES Allergen Reactions - Ciprofloxacin Hives - Keflex [Cephalexin] Hives - Shellfish Itching VERIFIED BY SKIN TESTING - Sulfa (Sulfonamide * Hives - Augmentin [Amoxicil* Rash, Swelling - Erythromycin Hives - Seasonal Allergies Unknown Trees, molds, grasses verified by skin testing Prior to Admission Medications Prescriptions Last Dose Informant Patient Reported? Taking? Cholecalciferol, Vitamin D3, (VITAMIN D) 1,000 unit cap 02/07/2019 at Unknown time No Yes Sig: Take 4 capsules by mouth once daily. EPINEPHrine (EPIPEN) 0.3 mg/0.3 mL auto-injector No No Sig: Inject 0.3 mL intramuscularly as needed (for allergic reaction.Seek emergent medical care immediately after use.Disp:one 2-pack w/corporate sales trainer). loratadine (CLARITIN ORAL) 02/08/2019 at 1100 Yes Yes Sig: Take by mouth. vit/iron fum/folic ac ( VITAMIN ORAL) 02/07/2019 at Unknown time Yes Yes Sig: Take by mouth. Facility-Administered Medications: None REVIEW OF SYSTEMS: GENERAL: No weight loss, malaise or fevers. RESPIRATORY: Negative for cough, hemoptysis, wheezing, COPD, dyspnea or shortness of breath CARDIOVASCULAR: Negative for chest pain, leg swelling, hypertension, CHF or palpitations GI: No vomiting. She reported mild nausea this morning, but that has resolved. The remainder of the review of systems is negative. Objective LAST VITALS: Pulse BP Resp O2 Sat Temp Pain 80 105/54 16 98 % 36.6 ?C (97.9 ?F) 7 HT/WT/BMI: Height Weight BMI 157.5 cm (5' 2) 60.8 kg (134 lb) 24.51 PHYSICAL EXAM: General: WD, WN, comfortable HEENT: NC/AT, sclera white, pupils equal Lungs: clear Heart: RR, S1, S2 Abdomen: soft, nontender Uterus: soft, NT, EFW 8# Extremities: 1+ edema DTRs: 2+ FHT: bpm St Spec Exam: (not done) CERVICAL EXAM: Dilation: 1.5cm Station: -3 Effacement: 50% Position: Posterior Presentation: Pelvimetry: Pelvimetry clinically assessed as adequate MONITORING/ASSESSMENT : Baseline: Baseline Rate: 140 bpm (02/08/19 2100 : Rebecca Choudhury RN) Variability: Variability: Moderate (6-25 bpm) (02/08/19 2100 : Rebecca Choudhury RN) Accelerations: Accelerations: Present (02/08/19 2100 : Rebecca Choudhury RN) Decelerations: Decelerations: None (02/08/19 2100 : Rebecca Choudhury RN) Contractions: Not present (02/08/192099 : Rebecca Choudhury RN) Frequency: x2 (02/08/19 2030 : Rebecca Choudhury RN) NST Interpretation: FHR Category: 1 (02/08/19 2100 : Rebecca Choudhury RN) EFW: 7 based on clinical assessment. LABS Diagnostic tests reviewed for today's visit: Most recent labs Assessment/Plan 33 year old EGA:39w5d presented for rule out labor. FHT Cat 1 [place] every 5-6 minutes on tocometer. Variable in strength Not in active labor at this time. Cervical exam unchanged from prior. Discussed labor precautions and when to return to triage. Patient understands and agrees to plan. Was offered to stay and walk with recheck at later time but elected for discharge. Plan of care discussed with: Provider, RN, Patient. SIGNATURE: En Calix Ms PATIENT NAME: Ella Vega DATE: February 08, 2019 TIME: 8:24 PM PAGER/CONTACT #: [phone] [facility] Vital Signs Date Time Vital Sign Value Performing Clinician Facility 02-17-2025 11:13-0400 Body height 154.94 cm Zofia Bird PA Work Phone: [facility] 02-17-2025 11:13-0400 Body mass index (BMI) [Ratio] 21.3 kg/m2 Zofia Bird PA Work Phone: [facility] 02-17-2025 11:13-0400 Body weight 51.25 kg Zofia Bird PA Work Phone: [facility] 02-17-2025 11:13-0400 Diastolic blood pressure 63 mm[Hg] Zofia Bird PA Work Phone: [facility] 02-17-2025 11:13-0400 Heart rate 68 /min Zofia Bird PA Work Phone: [facility] 02-17-2025 11:13-0400 Respiratory rate 16 /min Zofia Bird PA Work Phone: [facility] 02-17-2025 11:13-0400 Systolic blood pressure 100 mm[Hg] Zofia Bird PA Work Phone: [facility] 06-07-2024 00:57-0500 Diastolic blood pressure 65 mm[Hg] Kaylinn Dokken [facility] 06-07-2024 00:57-0500 Heart rate 70 /min Kaylinn Dokken [facility] 06-07-2024 00:57-0500 Mean blood pressure 78 mm[Hg] Kaylinn Dokken [facility] 06-07-2024 00:57-0500 Respiratory rate 21 /min Kaylinn Dokken [facility] 06-07-2024 00:57-0500 SaO2% (BldA) [Mass fraction] 99 % Kaylinn Dokken [facility] 06-07-2024 00:57-0500 Systolic blood pressure 103 mm[Hg] Kaylinn Dokken [facility] 06-07-2024 00:36-0500 Diastolic blood pressure 69 mm[Hg] Kaylinn Dokken [facility] 06-07-2024 00:36-0500 Heart rate 69 /min Kaylinn Dokken [facility] 06-07-2024 00:36-0500 Mean blood pressure 79 mm[Hg] Kaylinn Dokken [facility] 06-07-2024 00:36-0500 Respiratory rate 18 /min Kaylinn Dokken [facility] 06-07-2024 00:36-0500 SaO2% (BldA) [Mass fraction] 98 % Kaylinn Dokken [facility] 06-07-2024 00:36-0500 Systolic blood pressure 99 mm[Hg] Kaylinn Dokken [facility] 06-06-2024 23:12-0500 Diastolic blood pressure 62 mm[Hg] Kaylinn Dokken [facility] 06-06-2024 23:12-0500 Heart rate 62 /min Kaylinn Dokken [facility] 06-06-2024 23:12-0500 Mean blood pressure 82 mm[Hg] Kaylinn Dokken [facility] 06-06-2024 23:12-0500 Respiratory rate 16 /min Kaylinn Dokken [facility] 06-06-2024 23:12-0500 SaO2% (BldA) [Mass fraction] 99 % Vlad Erazo [facility] 06-06-2024 23:12-0500 Systolic blood pressure 122 mm[Hg] Vlad Erazo [facility] 06-06-2024 22:15-0500 Body temperature 98.06 [degF] Vlad Erazo [facility] 06-06-2024 22:15-0500 Heart rate 65 /min Vlad Erazo [facility] 06-06-2024 22:15-0500 Respiratory rate 17 /min [facility] Encounters Encounter Date Encounter Type Care Provider Facility Start: 02-17-2025 End: 02-17-[address] Boaz Rizvi [facility] -[facility] Work Phone: Start: 02-17-2025 End: 02-17-2025 ambulatory Zofia James Facility:[facility] [place] Start: 07-03-2024 Non-patient / Non-visit Dr. Vivian Cervantes MD -[facility] Start: 07-03-2024 End: 07-03-2024 ambulatory Zofia DAWSON Work Phone: [facility] Work Phone: Start: 07-03-2024 End: 07-03-2024 Patient encounter procedure Zofia DAWSON -[facility] Work Phone: Start: 07-03-2024 End: 07-03-2024 ambulatory Zofia James Facility:[facility] Start: 06-06-2024 End: 06-07-2024 Emergency department patient visit Vlad Erazo [facility] Procedures Date Procedure Procedure Detail Performing Clinician Start: 02-13-2019 Antibody screen Comment on above: Performed By: #### P YULIA #### [place] [address] Plan of Treatment Date Care Activity Detail Author Start: 02-17-2025 Tilt table test [facility] Start: 02-17-2025 End: 02-17-2025 Evaluation of diagnostic study results [facility] Payers Date Payer Category Payer Self-pay 2024 Unknown [id number] 2024 Unknown [id number] 2024 Unknown [id number] 1985 Unknown [id number] 2.16.8 [id number] 1985 Unknown [id number] 2.16.8 [id number] Unknown [id number] 2.16.8 [id number] Unknown [id number] 2.16.8 [id number] Unknown [id number] 2.16.8 [id number] Social History Date Type Detail Facility Tobacco smoking status [facility] Sex Assigned At Female [facility] Tobacco smoking stat us NHIS Unknown if ever smoked [facility] Work Phone: Start: 07-16-2024 Sex Female (finding) [facility] Start: 1985 Sex Assigned At Female [facility] Start: 02-04-2025 Tobacco smoking stat us NHIS Never smoked tobacco (finding) [facility] Functional Status Date Assessment Result Facility 06-06-2024 Functional Status N/A [facility] Progress note 02-17-2025 Note Date & Type Note Facility 02-17-2025 Progress note [facility] Evaluation + Plan note 06-07-2024 Note Date & Type Note Facility 06-07-2024 Evaluation + Plan note Extrac han from: Title:ED Note Author:adriannashannan CORNEJO Johnrambo Hunt Date :06/07/24 Chest pain (R07.9: Chest alonzo n, unspecified) Orders: ketorolac, 15 mg = 1 mL, Injection, IV Push, Once, Stop date 06/06/24 23:01:00 EST, STAT, Start date 06/06/24 23:01:00 EST, 06/06/24 23:01:00 EST naproxen, 500 mg = 1 tab(s), Oral, BID, PRN for pain, # 20 tab(s), Refills(s) 0 ondansetron, 4 mg = 1 tab(s), Oral, q6hr, # 12 tab(s), Refills(s) 0 Sodium Chloride 0.9% intravenous solution, 500 mL, Soln-IV, IV, Once, Stop date 06/06/24 22:26:00 EST, STAT, Start date 06/06/24 22:26:00 EST, 500 mL/hr, Infuse over 1, hour(s) Basic Metabolic Panel CBC w/ Auto Diff ECG 12 Lead Adult ED Cardiac Monitoring eGFR Oxygen Saturation Oxygen Therapy PT & PTT Saline Lock Insert Troponin 0 Hr. Troponin 1 Hr. XR Chest Single View [facility] Discharge instructions 06-07-2024 Note Date & Type Note Facility 06-07-2024 Hospital Discharg e instructions Patient Education 06/07/2024 01:00:20 Nonspecific Chest Pain, Adult, [id number] Nonspecific Chest Pain Chest pain can be caused by many different conditions. Some causes of chest pain can be life-threatening. These will require treatment right away. Serious causes of chest pain include: Heart attack. A tear in the body's main blood vessel. Redness and swelling (inflammation) around your heart. Blood clot in your lungs. Other causes of chest pain may not be so serious. These include: Heartburn. Anxiety or stress. Damage to bones or muscles in your chest. Lung infections. Chest pain can feel like: Pain or discomfort in your chest. Crushing, pressure, aching, or squeezing pain. Burning or tingling. Dull or sharp pain that is worse when you move, cough, or take a deep breath. Pain or discomfort that is also felt in your back, neck, jaw, shoulder, or arm, or pain that spreads to any of these areas. It is hard to know whether your pain is caused by something that is serious or something that is not so serious. So it is important to see your doctor right away if you have chest pain. Follow these instructions at home: Medicines Take jwwq-bce-fuhkqjz and prescription medicines only as told by your doctor. If you were prescribed an antibiotic medicine, take it as told by your doctor. Do not stop taking the antibiotic even if you start to feel better. Lifestyle Rest as told by your doctor. Do not use any products that contain nicotine or tobacco, such as cigarettes, e-cigarettes, and chewing tobacco. If you need help quitting, ask your doctor. Do not drink alcohol. Make lifestyle changes as told by your doctor. These may include: ?Getting regular exercise. Ask your doctor what activities are safe for you. ?Eating a heart-healthy diet. A diet and dairy nutrition specialist (dietitian) can help you to learn healthy eating options. ?Staying at a healthy weight. ?Treating diabetes or high blood pressure, if needed. ?Lowering your stress. Activities such as yoga and relaxation techniques can help. General instructions Pay attention to any changes in your symptoms. Tell your doctor about them or any new symptoms. Avoid any activities that cause chest pain. Keep all follow-up visits as told by your doctor. This is important. You may need more testing if your chest pain does not go away. Contact a doctor if: Your chest pain does not go away. You feel depressed. You have a fever. Get help right away if: Your chest pain is worse. You have a cough that gets worse, or you cough up blood. You have very bad (severe) pain in your belly (abdomen). You pass out (faint). You have either of these for no clear reason: ?Sudden chest discomfort. ?Sudden discomfort in your arms, back, neck, or jaw. You have shortness of breath at any time. You suddenly start to sweat, or your skin gets clammy. You feel sick to your stomach (nauseous). You throw up (vomit). You suddenly feel lightheaded or dizzy. You feel very weak or tired. Your heart starts to beat fast, or it feels like it is skipping beats. These symptoms may be an emergency. Do not wait to see if the symptoms will go away. Get medical help right away. Call your local emergency services (911 in the [place] Do not drive yourself to the hospital. Summary Chest pain can be caused by many different conditions. The cause may be serious and need treatment right away. If you have chest pain, see your doctor right away. Follow your doctor's instructions for taking medicines and making lifestyle changes. Keep all follow-up visits as told by your doctor. This includes visits for any further testing if your chest pain does not go away. Be sure to know the signs that show that your condition has become worse. Get help right away if you have these symptoms. This information is not intended to replace advice given to you by your health care provider. Make sure you discuss any questions you have with your health care provider. Document Revised: 03/07/2023 Document Reviewed: 03/07/2023 [employer] Patient Education 2023 Guide. Follow Up Care 06/06/2024 22:13:12 With:ZOFIA JAMES Address: [address] [place] [address]- [phone] Business (1) When:06/10/2024 Comments:You can take the naproxen, Zofran as prescribed as needed for pain and nausea. Please follow-up with your primary care doctor for further evaluation and management. Please return to the ED for any new or worsening symptoms. [facility] Clinical Note 06-07-2024 Note Date & Type Note Facility 06-07-2024 Note ED Patient Education Note Gastroenterology Nonspecific Chest Pain Chest pain can be caused by many different conditions. Some causes of chest pain can be life-threatening. These will require treatment right away. Serious causes of chest pain include: ??? Heart attack. ??? A tear in the body's main blood vessel. ??? Redness and swelling (inflammation) around your heart. ??? Blood clot in your lungs. Other causes of chest pain may not be so serious. These include: ??? Heartburn. ??? Anxiety or stress. ??? Damage to bones or muscles in your chest. ??? Lung infections. Chest pain can feel like: ??? Pain or discomfort in your chest. ??? Crushing, pressure, aching, or squeezing pain. ??? Burning or tingling. ??? Dull or sharp pain that is worse when you move, cough, or take a deep breath. ??? Pain or discomfort that is also felt in your back, neck, jaw, shoulder, or arm, or pain that spreads to any of these areas. It is hard to know whether your pain is caused by something that is serious or something that is not so serious. So it is important to see your doctor right away if you have chest pain. Follow these instructions at home: Medicines ??? Take kutt-yzx-lxhxajb and prescription medicines only as told by your doctor. ??? If you were prescribed an antibiotic medicine, take it as told by your doctor. Do not stop taking the antibiotic even if you start to feel better. Lifestyle ??? Rest as told by your doctor. ??? Do not use any products that contain nicotine or tobacco, such as cigarettes, e-cigarettes, and chewing tobacco. If you need help quitting, ask your doctor. ??? Do not drink alcohol. ??? Make lifestyle changes as told by your doctor. These may include: ? Getting regular exercise. Ask your doctor what activities are safe for you. ? Eating a heart-healthy diet. A diet and dairy nutrition specialist (dietitian) can help you to learn healthy eating options. ? Staying at a healthy weight. ? Treating diabetes or high blood pressure, if needed. ? Lowering your stress. Activities such as yoga and relaxation techniques can help. General instructions ??? Pay attention to any changes in your symptoms. Tell your doctor about them or any new symptoms. ??? Avoid any activities that cause chest pain. ??? Keep all follow-up visits as told by your doctor. This is important. You may need more testing if your chest pain does not go away. Contact a doctor if: ??? Your chest pain does not go away. ??? You feel depressed. ??? You have a fever. Get help right away if: ??? Your chest pain is worse. ??? You have a cough that gets worse, or you cough up blood. ??? You have very bad (severe) pain in your belly (abdomen). ??? You pass out (faint). ??? You have either of these for no clear reason: ? Sudden chest discomfort. ? Sudden discomfort in your arms, back, neck, or jaw. ??? You have shortness of breath at any time. ??? You suddenly start to sweat, or your skin gets clammy. ??? You feel sick to your stomach (nauseous). ??? You throw up (vomit). ??? You suddenly feel lightheaded or dizzy. ??? You feel very weak or tired. ??? Your heart starts to beat fast, or it feels like it is skipping beats. These symptoms may be an emergency. Do not wait to see if the symptoms will go away. Get medical help right away. Call your local emergency services (911 in the [place] Do not drive yourself to the hospital. Summary ??? Chest pain can be caused by many different conditions. The cause may be serious and need treatment right away. If you have chest pain, see your doctor right away. ??? Follow your doctor's instructions for taking medicines and making lifestyle changes. ??? Keep all follow-up visits as told by your doctor. This includes visits for any further testing if your chest pain does not go away. ??? Be sure to know the signs that show that your condition has become worse. Get help right away if you have these symptoms. This information is not intended to replace advice given to you by your health care provider. Make sure you discuss any questions you have with your health care provider. Document Revised: 03/07/2023 Document Reviewed: 03/07/2023 [employer] Patient Education ? 2023 [employer] [facility] Evaluation note Note Date & Type Note Facility Evaluation note No assessment information [facility] Work Phone: Evaluation note Note Date & Type Note Facility Evaluation note Diagnosis Onset Date Resolution POTS (postural orthostatic tachycardia syndrome) acute February 17 11:02am Syncope acute February 17, 2025 11:02am [facility] Work Phone: Hospital course Narrative Note Date & Type Note Facility Hospital course Narrative No data available for this section [facility] Progress note Note Date & Type Note Facility Progress note No data available for this section [facility] Progress note Note Date & Type Note Facility Progress note Note Date/Time February 17, 2025 11:36am [facility] [address] [place] [address] OFFICE VISIT Date of Service: 02/17/25 MR#: [id number] Acct: [id number] Name: ELLA VEGA Rep #: [id number] : 1985 Provider: Dr. Malgorzata Rizvi MD Age/Sex: 39/F [place] [facility] [place] Status: Signed HPI HPI History of Present Illness Details: The patient is a 39-year-old female with a history of vasovagal syncope, presenting for evaluation of ongoing symptoms. The patient was diagnosed with vasovagal syncope in her early 20s following a positive tilt table test. Recently, her primary care provider suggested a diagnosis of POTS and initiated propranolol, which has helped reduce episodes of tachycardia. She is seeking further evaluation to determine the accuracy of her diagnosis and the appropriateness of her current treatment regimen. She did have an echocardiogram in June which demonstrated preserved left ventricular systolic function with no wall motion abnormalities noted and no mitral valve prolapse. She reports persistent symptoms of palpitations, dizziness, and severe fatigue. Dizziness is particularly pronounced with postural changes, such as standing up after gardening, often accompanied by visual disturbances like seeing black spots and a sensation of things swimming. She has not experienced any recent syncopal episodes, as she can usually prevent fainting by quickly sitting down or holding onto something. A few months ago, she visited the ED due to significant chest pain but was discharged without a clear diagnosis. She continues to experience occasional chest discomfort. Her physical exam is unremarkable and her electrocardiogram demonstrates sinus rhythm with a rate of 62 bpm. She carries a water bottle with added salt to maintain hydration and increase sodium intake. During episodes of severe symptoms, she consumes salty snacks andcaffeinated beverages, which she finds helpful. She has a history of IBS and has previously tried elimination diets. Recently, she has been reducing gluten intake and increasing protein consumption, which she believes may slightly alleviate her symptoms. She is currently not employed outside the home. She is taking propranolol 20 mg BID and various supplements, including milk thistle. Intake Vital Signs 02/17/25 11:13 Height 5 ft 1 in Weight: 113 lb BMI 21.3 BP 100/63 Blood Pressure Location Lt brachial Position Sitting Respiration 16 Pulse 68 Pulse Source Monitor Intake Visit Reasons: POTS (BIRD) Manager Reading Required: No Accompanied by: Significant Other Is patient in pain?: No Allergies amoxicillin Allergy (Severe, Verified 02/17/25 11:08) Hives cephalexin (From Keflex) Allergy (Severe, Verified 02/17/25 11:08) Hives ciprofloxacin (From Cipro) Allergy (Severe, Verified 02/17/25 11:08) Hives clavulanic acid (From Augmentin) Allergy (Severe, Verified 02/17/25 11:08) Hives erythromycin base Allergy (Severe, Verified 02/17/25 11:08) Hives Penicillins Allergy (Severe, Verified 02/17/25 11:08) Hives shellfish derived Allergy (Severe, Verified 02/17/25 11:08) Anaphylaxis Sulfa (Sulfonamide Antibiotics) Allergy (Severe, Verified 02/17/25 11:08) Hives Medications ?Medication ?Instructions ?Recorded ?Confirmed ?Type calcium lactate 100 mg PO QDAY 02/04/2502/03 History epinephrine 0.3 mg/0.3 mL 0.3 mg IM Q5-15M PRN 5 02/17/25 History injection, auto-injector ergocalciferol (vitamin D2) 50 mcg 50 mcg PO QDAY 06/3002/17/25 History (2,000 unit) capsule magnesium oxide 400 mg PO QDAY 02/04/2502/03 History mecobalamin (vitamin B12) 1,000 1,000 mcg PO QDAY 06/3002/17/25 History mcg lozenges milk thistle seed 1 tab PO DAILY 02/04/2502/03 History fg-hhmhilohsa-lpyhqktom-turmeri 250 mg-250 mg tablet (Liver Complex) phytonadione (vitamin K1) 100 mcg 100 mcg PO QDAY 06/3002/17/25 History tablet propranolol 20 mg tablet 20 mg PO BID 02/04/25 History lactobacillus combination no.9 4 PO QDAY 02/17/2502/03 History billion cell capsule (Adult 50 Plus Probiotic) Ejection fraction %: 55 [facility] Medical History Asthma Hx of ectopic Fatigue Tachycardia Palpitations Syncope Chris Barragan infection IBS (irritable bowel syndrome) Lyme disease POTS (postural orthostatic tachycardia syndrome) Surgical History H/O dilation and curettage Family History Father COPD (chronic obstructive pulmonary disease) Alcohol abuse Drug abuse Social History Smoking Status: Never smoker alcohol intake: never substance use type: does not use ROS Const Const: Positive for fatigue and difficulty sleeping; Negative for weakness or daytime sleepiness ENT ENT: Positive for dizziness; Negative for Nosebleed/epistaxis Cardio Chest Pain: No Palpitations: Yes feels like its: fast and skipping Edema: None Resp Respiratory: Positive for SOB with activity (with palps); Negative for SOB at rest, SOB orthopnea\SOB lying down or Cough GI GI: Negative nausea, vomiting or heartburn Neuro Neuro: Positive for dizziness, lightheadedness and near syncope; Negative for weakness Endo Endo: Positive for fatigue Cardiology Exam Const Appearance: cooperative, healthy appearing, no acute distress, well developed and well groomed Nutritional Appearance: average body habitus and well nourished Orientation: alert, awake and oriented x3 Head Head: normal to inspection, normocephalic and atraumatic Ears: hearing grossly normal bilaterally and external ears normal Nose: external nose normal, nares normal, nasal mucous membranes and turbinates normal, septum normal and no nasal discharge Face and Sinus: face symmetric Mouth: oral mucosae normal, tongue normal, oropharynx normal and moist mucous membranes Teeth and gingiva: dentition normal Throat: posterior oropharynx normal, tonsils normal and uvula midline Eyes General: appearance normal, both eyes and all related structures Eyelids: eyelids normal Conjunctivae: conjunctivae normal Pupils: PERRL, normal by confrontation and accommodation normal EOM: EOM intact bilaterally Neck Neck: normal visual inspection, trachea midline and no JVD JVD: +5 Carotids: normal carotid upstroke and bounding pulses Chest Chest inspection: normal inspection of the chest, symmetric chest movement and normal respiratory effort Auscultation: Bilateral: Clear to Auscultation Cardio Palpation: normal PMI Rate: regular rate Rhythm: regular rhythm Heart sounds: S1 normal, S2 normal and normal, physiologic split S2; Negative rub, gallop or murmur GI GI: normal to inspection, soft, no hepatosplenomegaly and bowel sounds present Neuro General: patient alert, patient awake, patient oriented x3, gait normal, moves all extremities and no focal sensory deficit Skin Skin: no rashes or lesions noted Extremities Pulses: Normal: Right Femoral Pulse, Left Femoral Pulse, Right Dorsalis Pedis Pulse, Left Dorsalis Pedis Pulse, Right Posterior Tibial Pulse, Left Posterior Tibial Pulse, Right Radial Pulse and Left Radial Pulse Lower Extremity Edema: None: Bilateral Musculoskel Musculoskeletal: No joint tenderness Psych Psychological: normal affect Supplemental Info Supplemental Information Echocardiogram 07/03/24 Interpretation Summary The estimated ejection fraction is 55 %. No evidence for diastolic dysfunction. Trivial mitral valve insufficiency. Diagnostics: Echocardiogram Past Visits: Cardiology Visit Today Assessment and Plan Assessment and Plan (1) POTS (postural orthostatic tachycardia syndrome): Status: Acute Plan: It is not entirely clear to me whether she has POTS but she does have history ofvasovagal syncope diagnosed in early 20s via tilt table test; currently on propranolol 20 mg BID for palpitations and tachycardia. Ongoing symptoms includedizziness, near-syncope with postural changes, and fatigue. Differential includes POTS vs. vasovagal syncope; current propranolol therapy may confound diagnostic clarity. Echocardiogram from June and today's EKG are unremarkable. - Reduce propranolol from 20 mg BID to 10 mg BID for 1 week, then discontinue. - Order repeat tilt table test off medication to clarify diagnosis. - Continue current supplements. - Advised maintaining high fluid and salt intake to support blood pressure. - Discussed limited evidence for gluten-free diet; advised to reduce gluten intake, not eliminate entirely. - Follow-up in a few weeks to review tilt table test results and reassess management. (2) Syncope: Status: Acute Plan: She has not had any leigha syncopal episodes recently. Depending on the results of the tilt table test further recommendations will be made. This may include midodrine or ivabradine. Orders: Orders 12 Lead EKG performed by [facility] Today R00.0 - Tachycardia, unspecified, R00.2 - Palpitations, R53.83 - Other fatigue, R55 - Syncope and collapse Tilt Table Test Today R55 - Syncope and collapse Plan Details Follow Up: 3 Months (kr) Coding Level of Care Code Off vis,new,level 3 Diagnoses POTS (postural orthostatic tachycardia syndrome) G90.A Syncope R55 Coding Level of Care Code Off vis,new,level 3 Diagnoses POTS (postural orthostatic tachycardia syndrome) G90.A Syncope R55 Clinical Quality Measures Cardiac Ejection fraction %: 55 02/17/25 1141 <Electronically signed by Boaz Deleon> Date _ Boaz Rizvi MD Cosigner Signature: Date (if applicable) CC: SAMIR Blanton ~ [facility] Work Phone: Reason for referral (narrative) Note Date & Type Note Facility Reason for referral (narrative) No reason for referral information available [facility] Work Phone: Summary Purpose Family History Relationship Condition Age at Onset Recorded Date/T nancy father Chronic obstructive pulmonary disease Unk nown Alcohol abuse Unknown Drug abuse Unknown Advance Directives No Advanced Directives Records FoundNo Advanced Directives Records FoundNo Advanced Directives Records FoundNo Advanced Directives Records FoundNo Advanced Directives Records FoundNo Advanced Directives Records FoundNo Advanced Directives Records FoundNo Advanced Directives Records FoundNo Advanced Directives Records FoundNo Advanced Directives Records Found Chief Complaint and Reason for Visit Chief Complaint Admit Date Postural orthostatic tachycardia syndrom e [POTS] July 03, 2024 12:41pm Chief Complaint Admit Date POTS (BIRD) February 17, 2025 1 1:02am Reason for Visit Admit Date POTS (postural orthostatic tachycardia s yndrome) February 17, 2025 11:02am Syncope February 17, 2025 1 1:02am Additional Source Comments INFORMATION SOURCE (unrecogn ized section and content) DATE CREATED AUTHOR 02/14/2019 [facility] DATE CREATED AUTHOR AUTHOR'S ORGANIZ ATION 08/06/2019 [facility] DATE CREATED AUTHOR AUTHOR'S ORGANIZ ATION 06/08/2024 [facility] DATE CREATED AUTHOR AUTHOR'S ORGANIZ ATION 06/11/2024 [facility] DATE CREATED AUTHOR AUTHOR'S ORGANIZ ATION 02/19/2025 [facility] Patient Care team informatio n (unrecognized section and content) Team Status: Active Member Role Status Dates SAMIR Blanton Primary Care Provider Active Team Status: Inactive Member Role Status Dates SAMIR Blanton Primary Care Provider Active S tart: July 03, 2024 End: July 03, 2024 SAMIR Blanton Attending Provider Active Star t: July 03, 2024 End: July 03, 2024 SAMIR Blanton Referring Provider Active Star t: July 03, 2024 End: July 03, 2024 Team Status: Active Member Role Status Dates SAMIR Blanton Primary Care Provider Active S tart: July 03, 2024 Dr. Mark Cervantes MD Attending Provider Activ e Start: July 03, 2024 Team Status: Active Member Role/Relationship Status Dates SAMIR Blanton Primary care physician Active Team Status: Inactive Member Role/Relationship Status Dates SAMIR Blanton Primary care physician Active Start: February 17, 2025 End: February 17, 2025 SAMIR Blanton Referring Provider Active Star t: February 17, 2025 End: February 17, 2025 Dr. Boaz Rizvi MD Attending physician Active Start: February 17, 2025 End: February 17, 2025 Goals (unrecognized section and content) Goals may be documented in a n alternate section FOR RECORDS PERTAINING TO PATIENTS WHO ARE OR HAVE BEEN ENROLLED IN A CHEMICAL DEPENDENCY/SUBSTANCEABUSE PROGRAM, SOME INFORMATION MAY BE OMITTED. This clinical summary was aggregated from multiple sources. Caution should be exercised in using it in the provision of clinical care. This summary normalizes information from multiple sources, and as a consequence, information in this document may materially change the coding, format and clinical context of patient data. In addition, data may be omitted in some cases. CLINICAL DECISIONS SHOULD BE BASED ON THE PRIMARY CLINICAL RECORDS. [employer] [facility]. provides no warranty or guarantee of the accuracy or completeness of information in this document.
--- NOTE | 2025-04-13 16:59 | PCM.TILTTABL ---
Staff Staff: Priya Landaverde and Felipa Melendez Summary Pre Test Resting HR: 86 Pre Test Resting BP: 108/72 Minimum Test HR: 85 Maximum Test HR: 110 Minimum Test BP: 90/51 Maximum Test BP: 109/58 Reason for Test Termination: Reached Maximum Test Time Physician Tilt Table Report Patient's Physicians Primary Care Physician: Zofia Miranda Indications/Diagnosis: Syncope Procedure Comments: The patient was brought to the noninvasive lab in the postabsorptive nonsedated state. Informed consent was obtained. Initial EKG was obtained which demonstrated a heart rate of 86 bpm and blood pressure 109/58 mmHg. The patient was then placed in the 70 degree head upright tilt position and heart rate and blood pressures were monitored. Patient maintained this position for 30 minutes. There were no significant major changes in blood pressure though the heart rate initially did go up by 20 points within the first 2 minutes and then came back down within the next 2 minutes x 15 points. Patient did complain of mild uncomfortable feelings. After the appropriate time the patient was then put back in the recumbent position and recovered. No significant abnormalities were noted. Summary: Normal head upright tilt table test.
[2025-04-13 17:04] VITALS: BP 108/72; BP 109/58; BP 90/51
== END | disposition home or self-care (01) ==
LOC: CVS 09:27
PROVIDERS: PCP Physician Assistant; Referring Provider Internal Medicine Cardiovascular Disease; Visit Provider Internal Medicine Cardiovascular Disease
DX: R55 Syncope and collapse (principal)
CPT/HCPCS: 36415; 80048; 84703; 85027; 93660; A4216